=== PATIENT | female | born 1980 | race Caucasian/White ===

== ENCOUNTER 2022-11-09 08:58 | Emergency (ER) | payer OTHER, SELFPAY ==
[2022-11-09 09:03] VITALS: BP 121/74; PULSE 85; RESP 20; TEMP 36.8; O2SAT 97; BMI 24.4
--- NOTE | 2022-11-09 09:08 | XR_ITS ---
The [address] [address] Patient Name: JYOTHI SHARMA MRN: [id number] date: 1980 Sex: F Assigned Patient Location: ER Current Patient Location: ER Accession/Order Number: [id number] Exam Date: 11/09/2022 09:14 Report Date: 11/09/2022 09:44 At the request of: SHANIQUA VERMA Procedure: XR foot RT min 3V PROCEDURE: XR foot RT min 3V HISTORY: pain ; third and fourth metatarsal pain following injury COMPARISON: None. FINDINGS: BONES:No fracture, acute abnormality, or significant arthropathy. SOFT TISSUES:No visible soft tissue swelling. EFFUSION:None visible. OTHER: Negative. IMPRESSION: 1. No acute bone abnormality. Electronically authenticated by: ANDRES MATA Date: 11/09/2022 09:44
--- NOTE | 2022-11-09 09:12 | ED.LOWEXI1 ---
HPI - Extremity Injury (Lower) General Chief Complaint: Extremity Injury, Lower Stated Complaint: LOWER EXTREMITY LEFT FOOT Time Seen by Provider: 11/09/22 09:08 Source: patient Mode of arrival: walk-in Limitations: no limitations History of Present Illness HPI Narrative: 42-year-old female presents for pain in the dorsum of her right foot. Last night she twisted it doing jujitsu. No other injury was sustained. It's been swollen and she came in here to get checked today. The pain is moderate. No pain in the ankle. She did not hit it on anything. Related Data Home Medications Medication Instructions Recorded Confirmed lisinopril 10 mg tablet 10 mg PO DAILY 11/09/22 11/09/22 Allergies Allergy/AdvReac Type Severity Reaction Status Date / Time No Known Drug Allergies Allergy Verified 11/09/22 09:03 Review of Systems ROS Narrative A ten point review of systems is negative except as noted above. [facility] Medical History (Updated 11/09/22 @ 09:54 by Gaurav Cox MD) Social History Smoking status: Never smoker Exam Narrative Exam Narrative: Nurses note and vital signs reviewed and patient is not hypoxic. General: The patient appears well and in no apparent distress. Patient is resting comfortably on cart. Skin: Warm, dry, no pallor noted. There is no rash noted. Head: Normocephalic, atraumatic Eye: Normal conjunctiva, no drainage Ears, Nose, Mouth, and Throat: oral mucosa is moist. Nares patent. Cardiovascular: Regular Rate and Rhythm Respiratory: Patient is in no distress, no accessory muscle use Back: non-tender GI: Nontender Musculoskeletal: Right ankle nontender and nonswollen. She has swelling on the dorsum of her right foot with intact skin. Neurological: A&O, normal speech Psychiatric: Cooperative Constitutional Vital Signs - 24 hr 11/09/22 09:03 Temperature 98.2 F Pulse Rate [Monitor] 85 Respiratory Rate 20 Blood Pressure [Left Arm] 121/74 H Pulse Oximetry 97 Oxygen Delivery Method Room Air Course Vital Signs Vital signs: Vital Signs Temperature 98.2 F 11/09/22 09:03 Pulse Rate 85 11/09/22 09:03 Respiratory Rate 20 11/09/22 09:03 Blood Pressure 121/74 H 11/09/22 09:03 Pulse Oximetry 97 11/09/22 09:03 Oxygen Delivery Method Room Air 11/09/22 09:03 Temperature 98.2 F 11/09/22 09:03 Pulse Rate 85 11/09/22 09:03 Respiratory Rate 20 11/09/22 09:03 Blood Pressure 121/74 H 11/09/22 09:03 Pulse Oximetry 97 11/09/22 09:03 Oxygen Delivery Method Room Air 11/09/22 09:03 MDM - Extremity Injury (Lower) MDM Narrative Medical decision making narrative: X-ray per radiologist is negative. My clinical impressions that she has a sprained foot. She has her own crutches and she'll use ice and anti-inflammatory. Treatment diagnosis and follow-up were discussed with the patient. Differential Diagnosis Differential diagnosis: Likely other (Foot sprain, foot fracture) Discharge Plan Discharge Chief Complaint: Extremity Injury, Lower Clinical Impression: Foot sprain Patient Disposition: Home, Self-Care Time of Disposition Decision: 09:54 Condition: Good Mode of Transportation: Private Vehicle Prescriptions / Home Meds: No Action lisinopril 10 mg tablet 10 mg PO DAILY Stand Alone Forms: Portal Instructions Referrals: Yessenia Flores [Primary Care Provider] - 1 week
== END 2022-11-09 10:06 | disposition home or self-care (01) ==
PROVIDERS: Emergency Provider Emergency Medicine; PCP Family Medicine
DX: S93.601A Unspecified sprain of right foot, initial encounter (principal); X50.1XXA Overexertion from prolonged static or awkward postures, initial encounter; Y93.75 Activity, martial arts
CPT/HCPCS: 73630; 99283

== ENCOUNTER 2022-12-17 14:30 | Emergency (ER) | payer OTHER, SELFPAY ==
--- NOTE | 2022-12-17 14:45 | ED.GENADUL1 ---
Documented by User: DIMPLE Lai 12/17/22 15:00 HPI - General Adult General Chief complaint: Wound/Laceration Stated complaint: POSSIBLE STITCHES ON UPPER LIP R SIDE Time Seen by Provider: 12/17/22 14:35 History of Present Illness HPI narrative: patient is a 42-year-old female presents to the Emergency Room for evaluation of laceration to the right upper lip. Tetanus up-to-date, patient states she was doing jujitsu when her face struck her partners knee. She denies any dental injury. She denies any domestic violence. Patient states it was an accident during training. Patient reports minimal discomfort, but notes bleeding initially and that the area of skin on the lip opens wide with moving her mouth. Patient appears no distress. She denies any head injury or loss of consciousness. Onset (ago): hour(s) (2) Quality: Reports aching Treatments prior to arrival: Reports other (gauze, dry pressure) Related Data Home Medications Medication Instructions Recorded Confirmed lisinopril 10 mg tablet 10 mg PO DAILY 11/09/22 11/09/22 Allergies Allergy/AdvReac Type Severity Reaction Status Date / Time No Known Drug Allergies Allergy Verified 12/17/22 14:58 Review of Systems ROS Constitutional Denies: fever or chills Eyes Denies: change in vision or blurry vision Ears, nose, mouth, and throat Denies: neck pain or throat swelling Cardiovascular Denies: chest pain or palpitations Gastrointestinal Denies: nausea or vomiting Neurological Denies: headache or dizziness [facility] Medical History (Updated 12/17/22 @ 14:55 by DIMPLE Lai) Social History Smoking status: Never smoker Exam Narrative Exam Narrative: Nurses notes and vital signs reviewed and patient is not hypoxic. General:? The patient appears well and in no apparent distress.? Patient is resting comfortably on cart. Skin:? Warm, dry, no pallor noted.laceration 0.5 cm the inner lip right upper, does not involve the vermilion border. slightly extends into the intraoral mucosa Head:? Normocephalic, atraumatic Neck:? Supple, trachea mid-line, no tenderness, no lymphadenopathy Eye:? Pupils are equal, round and reactive to light, EOMI Ears, Nose, Mouth, and Throat:? normal external inspection, no dental tenderness on palpation, localized simple laceration to the lip but does not involve the external surface of skin or vermilion border. Cardiovascular:? Regular Rate and Rhythm Respiratory:? Patient is in no distress, no accessory muscle use, lungs are clear to auscultation, no wheezing, rales or rhonchi. Back:? non-tender, no CVA tenderness Musculoskeletal:? normal ROM, no tenderness, no swelling Neurological:? A&O x4 Psychiatric:? Cooperative Constitutional Vital Signs, click to edit/add: Last Vital Signs Temp 98 F 12/17/22 14:55 Pulse 71 12/17/22 14:55 Resp 18 12/17/22 14:55 BP 148/90 H 12/17/22 14:55 Pulse Ox 98 12/17/22 14:55 Course Course Hospital Course: Laceration repair:? Done under sterile conditions.? The use of Betadine? was used to prep and clean the area.?topical let applied.. The wound was irrigated copiously with normal saline.? The wound was explored there was no evidence of foreign material.? The laceration was approximated with 5-0 vicryl.? 2 simple interrupted sutures were placed.? Patient tolerated the procedure well.? The patient was neurovascularly intact post.? the patient had bacitracin applied to the laceration and a dry sterile dressing was place.? The patient will need to follow-up in the next 7 days for possible removal, recheck if not dissolving. Vital Signs Vital signs: Vital Signs Temperature 98 F 12/17/22 14:55 Pulse Rate 71 12/17/22 14:55 Respiratory Rate 18 12/17/22 14:55 Blood Pressure 148/90 H 12/17/22 14:55 Pulse Oximetry 98 12/17/22 14:55 Temperature 98 F 12/17/22 14:55 Pulse Rate 71 12/17/22 14:55 Respiratory Rate 18 12/17/22 14:55 Blood Pressure 148/90 H 12/17/22 14:55 Pulse Oximetry 98 12/17/22 14:55 Medical Decision Making [facility] Narrative Medical decision making narrative: tetanus up-to-date, patient presents with localized laceration to the lip, patient denies any neck or head injury. Recommend suture closure given the gaping of the laceration when patient opens her mouth. We discussed eating soft foods, rinsing with water after meals, and follow-up family doctor for reevaluation.Do not recommend oral antibiotics given wound, superficial, discussed rinsing. No current evidence of infection, discussed signs and symptoms to watch. We also discussed that sometimes dissolving sutures do not fully dissolved in the suture may need to be removed if it for sometime The patient is to followup with primary care physician in next 5-7 days or to return to the emergency department should any of the signs or symptoms worsen or new symptoms develop. Patient had questions answered. The patient agrees with the following Diagnosis and Treatment plan and the patient will be discharged home.? Discharge Plan Discharge Chief Complaint: Wound/Laceration Clinical Impression: Laceration of lip Patient Disposition: Home, Self-Care Time of Disposition Decision: 15:33 Condition: Good Prescriptions / Home Meds: No Action lisinopril 10 mg tablet 10 mg PO DAILY Instructions: Laceration (ED) Stand Alone Forms: Portal Instructions Referrals: Yessenia Flores [Primary Care Provider] - 1 week Documented by User: Sherry Engel MD 12/17/22 15:17 HPI - General Adult General Chief complaint: Wound/Laceration Stated complaint: POSSIBLE STITCHES ON UPPER LIP R SIDE Time Seen by Provider: 12/17/22 14:35 Related Data Home Medications Medication Instructions Recorded Confirmed lisinopril 10 mg tablet 10 mg PO DAILY 11/09/22 11/09/22 Allergies Allergy/AdvReac Type Severity Reaction Status Date / Time No Known Drug Allergies Allergy Verified 12/17/22 14:58 PFSH [facility] Medical History (Updated 12/17/22 @ 14:55 by DIMPLE Lai) Social History Smoking status: Never smoker Exam Constitutional Vital Signs, click to edit/add: Last Vital Signs Temp 98 F 12/17/22 14:55 Pulse 71 12/17/22 14:55 Resp 18 12/17/22 14:55 BP 148/90 H 12/17/22 14:55 Pulse Ox 98 12/17/22 14:55 Course Course Hospital Course: Laceration repair:? Done under sterile conditions.? The use of Betadine? was used to prep and clean the area.?topical let applied.. The wound was irrigated copiously with normal saline.? The wound was explored there was no evidence of foreign material.? The laceration was approximated with 5-0 vicryl.? 2 simple interrupted sutures were placed.? Patient tolerated the procedure well.? The patient was neurovascularly intact post.? the patient had bacitracin applied to the laceration and a dry sterile dressing was place.? The patient will need to follow-up in the next 7 days for possible removal, recheck if not dissolving. Vital Signs Vital signs: Vital Signs Temperature 98 F 12/17/22 14:55 Pulse Rate 71 12/17/22 14:55 Respiratory Rate 18 12/17/22 14:55 Blood Pressure 148/90 H 12/17/22 14:55 Pulse Oximetry 98 12/17/22 14:55 Temperature 98 F 12/17/22 14:55 Pulse Rate 71 12/17/22 14:55 Respiratory Rate 18 12/17/22 14:55 Blood Pressure 148/90 H 12/17/22 14:55 Pulse Oximetry 98 12/17/22 14:55 Medical Decision Making MDM Narrative Medical decision making narrative: tetanus up-to-date, patient presents with localized laceration to the lip, patient denies any neck or head injury. Recommend suture closure given the gaping of the laceration when patient opens her mouth. We discussed eating soft foods, rinsing with water after meals, and follow-up family doctor for reevaluation.Do not recommend oral antibiotics given wound, superficial, discussed rinsing. No current evidence of infection, discussed signs and symptoms to watch. We also discussed that sometimes dissolving sutures do not fully dissolved in the suture may need to be removed if it for sometime The patient is to followup with primary care physician in next 5-7 days or to return to the emergency department should any of the signs or symptoms worsen or new symptoms develop. Patient had questions answered. The patient agrees with the following Diagnosis and Treatment plan and the patient will be discharged home.? Attending physician attestation All procedures were done by mid-level provider under my supervision. I have reviewed the mid-level documentation, agree with the documentation, medical decision making and treatment plan as outlined by the mid-level provider. Discharge Plan Discharge Chief Complaint: Wound/Laceration Clinical Impression: Laceration of lip Patient Disposition: Home, Self-Care Time of Disposition Decision: 15:33 Condition: Good Prescriptions / Home Meds: No Action lisinopril 10 mg tablet 10 mg PO DAILY Instructions: Laceration (ED) Stand Alone Forms: Portal Instructions Referrals: Yessenia Flores [Primary Care Provider] - 1 week
[2022-12-17 14:55] VITALS: BP 148/90; PULSE 71; RESP 18; TEMP 36.6; O2SAT 98; BMI 20.2
== END 2022-12-17 15:32 | disposition home or self-care (01) ==
PROVIDERS: Emergency Provider Emergency Medicine; PCP Family Medicine
DX: S01.511A Laceration without foreign body of lip, initial encounter (principal); W51.XXXA Accidental striking against or bumped into by another person, initial encounter; Y93.75 Activity, martial arts; Z79.899 Other long term (current) drug therapy
CPT/HCPCS: 12011; 99282

== ENCOUNTER 2023-07-07 09:17 | Outpatient (OUT) | payer OTHER, SELFPAY ==
[2023-07-07 10:09] LABS: Alanine Aminotransferase 35 U/L (14-59); Albumin Level 3.6 g/dL (3.4-5.0); Alkaline Phosphatase 69 U/L (46-116); Anion Gap 12.5; Aspartate Amino Transferase 25 U/L (15-37); Bilirubin Total 0.3 mg/dL (0.2-1.0); Calcium 8.8 mg/dL (8.5-10.1); Carbon Dioxide 28.1 mmol/L (21.0-32.0); Chloride 103 mmol/L (98-107); Estimated GFR (African America >60 (>=60); Estimated GFR (Non-African Ame >60 (>=60); Globulin 3.5 g/dL; Glucose 94 mg/dL (74-106); Potassium 4.6 mmol/L (3.5-5.1); Sodium 139 mmol/L (136-145); Total Protein 7.1 g/dL (6.4-8.2)
== END 2023-07-07 09:18 | disposition home or self-care (01) ==
LOC: LAB 09:19
PROVIDERS: PCP Family Medicine; Visit Provider Family Medicine
DX: I10 Essential (primary) hypertension (principal)
CPT/HCPCS: 36415; 80053

== ENCOUNTER 2023-09-21 18:50 | Emergency (ER) | payer OTHER, SELFPAY ==
[2023-09-21 18:56] VITALS: BP 127/86; PULSE 77; TEMP 36.8; O2SAT 99; BMI 23.4
[2023-09-21 19:00] VITALS: PULSE 78
--- NOTE | 2023-09-21 19:02 | XR_ITS ---
The [address] [address] Patient Name: JYOTHI SHARMA MRN: [id number] date: 1980 Sex: F Assigned Patient Location: ER Current Patient Location: ER Accession/Order Number: [id number] Exam Date: 09/21/2023 19:12 Report Date: 09/21/2023 19:26 At the request of: MARIAN JOHNS Procedure: XR chest 2V EXAM: XR chest 2V HISTORY: pain intermittently for the past week. COMPARISON: 05/13/2017 TECHNIQUE: Upright PA and lateral chest x-ray FINDINGS: The heart is not enlarged and the vasculature is not distended. No acute infiltrate, effusion or pneumothorax is identified. The osseous structures are grossly intact. XR/XR chest 2V IMPRESSION: No acute infiltrate or evidence of cardiac decompensation. The overall appearance of the chest is essentially unchanged. Electronically authenticated by: SOFIYA LLOYD Date: 09/21/2023 19:26
--- NOTE | 2023-09-21 19:02 | ECG_ITS ---
The [facility] Test Date: 2023-09-21 Pat Name: JYOTHI SHARMA Department: Room: - Gender: Female [employer]: : 1980 Requested By: [id number] Order Number: [id number] Reading MD: ELISABETH DURAN Measurements Intervals [place] Rate: 78 P: 67 [place]: 166 QRS: 78 QRSD: 98 T: 61 QT: 412 QTc: 446 Interpretive Statements 1100 Sinus rhythm 9110 normal ECG Compared to ECG 05/13/2017 12:04:50 No significant changes Electronically Signed On 09-23-2023 10:47:14 EDT by ELISABETH DURAN
--- OUTSIDE RECORDS SUMMARY | 2023-09-21 19:06 | XMS_ITS | CCD ---
Author Organization [facility] Care Team Providers Care Financial Reporting Manager Name Role Phone Xavier Younger Attending Provider NO FAMILY, PHYSICIAN Primary Care Provider Unava ilPRADEEP Bryant Attending Unavailable BERLIN ALEX Attending Unavailable BERLIN ALEX Admitting Unavailable CAROLYNN, DR MOSQUEDA Primary Care Unavailable ANDREW HICKS Consulting Unavailable KATI QURESHI Consulting Unavailable BERLIN ALEX Consulting Unavailable DR JAYLIN PRADHAN Primary Care Unavailable SHANIQUA VERMA Attending Unavailable SHANIQUA VERMA Admitting Unavailable SHANIQUA VERMA Consulting Unavailable ANDREZ NAVARRO Consulting Unavailable TARIQ, DR PUGH Attending Unavailable TARIQ, DR PUGH Admitting Unavailable KANDIS GALAN Primary Care Unavailable Unavailable Unavailable Unavailable Problems Active Problems Problem Classification Problem Date Documented Da te Episodic/Chronic Other diseases of veins and lymphatics (4 sources) Disorder of vein, unspecified; Translations: [DISORDER OF VEIN UNSPECIFIED] Onset: 06-28-2022 Episodic Poisoning by nonmedicinal substances (1 source) Toxic effect of ingested mushrooms, undetermined, initial encounter; Translations: [Toxic effect of ingested mushrooms, undetermined, initial encounter] Onset: 04-22-2022 Episodic Residual codes; unclassified (1 source) Procedure and treatment not carried out due to patient leaving prior to being seen by health care provider; Translations: [PROC AND TX NOT CARRIED OUT PT LEAVE] Onset: 06-29-2022 Episodic Past or Other Problems Problem Classification Problem Date Documented Da te Episodic/Chronic E Codes: Natural/environment (2 sources) Overexertion from prolonged static or awkward postures, initial encounter; Translations: [Other and unspecified overexertion or strenuous movements or postures, initial encounter] Onset: 09-06-2021 Episodic E Codes: Unspecified (1 source) Activity, martial arts; Translations: [ACTIVITY MARTIAL ARTS] Onset: 10-04-2021 Episodic Fracture of upper limb (1 source) Displaced fracture of middle phalanx of left little finger, initial encounter for closed fracture; Translations: [DSPL FX MID PHAL LT LF INIT CLOS FX] Onset: 09-06-2021 Episodic Other aftercare (1 source) Other adjunct faculty for medical terminology (current) drug therapy; Translations: [OTH [facility] CURRENT DRUG THERAPY] Onset: 09-06-2021 Episodic Other connective tissue disease (3 sources) Pain in left finger(s); Translations: [PAIN IN LEFT FINGERS] Onset: 09-05-2021 Episodic Other non-traumatic joint disorders (3 sources) Pain in left ankle and joints of left foot; Translations: [PAIN IN LEFT ANKLE] Onset: 10-02-2021 Episodic Screening and history of mental health and substance abuse codes (1 source) Personal history of nicotine dependence; Translations: [PERSONAL HISTORY OF NICOTINE DEPEND] Onset: 09-06-2021 Episodic Sprains and strains (1 source) Sprain of unspecified ligament of left ankle, initial encounter; Translations: [SPRAIN UNS LIGAMENT LT ANKLE INIT] Onset: 10-04-2021 Episodic Results Test Name Value Interpretation Reference Range [facility] Basic Metabolic Profon 04-22 Anion gap [Moles/Vol] 12 mmol/L Normal - [place] Comment on above: Performed By: #### C DP, ALCB, BMP #### [facility] [address] [place] [address] Training Executive: Jm Mijares MD BUN/CRE Ratio 18 Normal - [facility] Comment on above: Performed By: #### C DP, ALCB, BMP #### [facility] [address] [place] [address] Training Executive: Jm Mijares MD Calcium [Mass/Vol] 9.3 mg/dL Normal 8.6-10.4 [place] Comment on above: Performed By: #### C DP, ALCB, BMP #### [facility] [address] [place] [address] Training Executive: Jm Mijares MD Chloride [Moles/Vol] 103 mmol/L Normal 98-107 [place] Comment on above: Performed By: #### C GEOVANNA ANTUNEZB, BMP #### [facility] [address] [facility] [place] [address] Training Executive: Jm Mijares MD CO2 [Moles/Vol] 24 mmol/L Normal 20-31 [place] Comment on above: Performed By: #### C HARMONY ALCB, BMP #### [facility] [address] [facility] [place] [address] Training Executive: Jm Mijares MD Creatinine [Mass/Vol] 0.84 mg/dL Normal 0.50-0.90 [place] Comment on above: Performed By: #### C GEOVANNA ANTUNEZB, BMP #### [facility] [facility] [place] [address] Training Executive: Jm Mijares MD GFR/1.73 sq M.predicted among non-blacks MDRD (S/P/Bld) [Vol rate/Area] mL/min/{1.73_m2} Normal >60 [place] Comment on above: Result Comment: Effective Feb 20, 2022 These results are not intended for use in patients <18 years of age. eGFR results are calculated without a race factor using the 2020 CKD-EPI equation. Careful clinical correlation is recommended, particularly when comparing to results calculated using previous equations. The CKD-EPI equation is less accurate in patients with extremes of muscle mass, extra-renal metabolism of creatine, excessive creatine ingestion, or following therapy that affects renal tubular secretion. Performed By: #### C DP ALCB, BMP #### [facility] [address] [facility] [place] [address] Training Executive: Jm Mijares MD Glucose [Mass/Vol] 127 mg/dL High 70-99 [place] Comment on above: Performed By: #### C DP ALCB, BMP #### [facility] [address] [facility] [place] [address] Training Executive: Jm Mijares MD Potassium [Moles/Vol] 3.9 mmol/L Normal 3.7-5.3 [place] Comment on above: Performed By: #### C DP, ALCB, BMP #### [facility] [place] [address] Training Executive: Jm Mijares MD Sodium [Moles/Vol] 139 mmol/L Normal 135-144 [place] Comment on above: Performed By: #### C DP, ALCB, BMP #### [facility] [facility] [place] [address] Training Executive: Jm Mijares MD Urea nitrogen [Mass/Vol] 15 mg/dL Normal 6-20 [place] Comment on above: Performed By: #### C DP ALCB, BMP #### [facility] [facility] [place] [address] Training Executive: Jm Mijares MD CBC with Diffon 04-22-2022 Abs. Basophil 0.03 k/uL Normal 0.00-0.20 [facility] Comment on above: Performed By: #### C DP ALCB, BMP #### [facility] [facility] [place] [address] Training Executive: Jm Mijares MD Abs. Eosinophil <0.03 Normal 0.00-0.44 [place] Comment on above: Performed By: #### C DP ALCB, BMP #### [facility] [facility] [place] [address] Training Executive: Jm Mijares MD Abs.Imm.Granulocyte 0.04 k/uL Normal 0.00-0.30 [place] Comment on above: Performed By: #### C DP, ALCB, BMP #### [facility] [place] [address] Training Executive: Jm Mijares MD Abs.Neutrophil (Seg) 9.71 k/uL High 1.50-8.10 [place] Comment on above: Performed By: #### C DP, ALCB, BMP #### [facility] [address] [place] [address]. [place] [address] Training Executive: Jm Mijares MD Basophils/100 WBC (Bld) 0 % Normal 0-2 [place] Comment on above: Performed By: #### C DP, ALCB, BMP #### [facility] [address] [place] [address]. [place] [address] Training Executive: Jm Mijares MD Eosinophils/100 WBC (Bld) 0 % Low 1-4 [place] Comment on above: Performed By: #### C DP, ALCB, BMP #### [facility] [address] [place] [address]. [place] [address] Training Executive: Jm Mijares MD Erythrocyte distribution width (RBC) [Ratio] 13.2 % Normal 11.8-14.4 [place] Comment on above: Performed By: #### C DP, ALCB, BMP #### [facility] [address] [place] [address]. [place] [address] Training Executive: Jm Mijares MD Hematocrit (Bld) [Volume fraction] 37.9 % Normal 36.3-47.1 [place] Comment on above: Performed By: #### C DP, ALCB, BMP #### [facility] [address] [place] [address]. [place] [address] Training Executive: Jm Mijares MD Hemoglobin (Bld) [Mass/Vol] 12.7 g/dL Normal 11.9-15.1 [place] Comment on above: Performed By: #### C DP ALCB, BMP #### [facility] [address] [place] [address]. [place] [address] Training Executive: Jm Mijares MD Immature granulocytes/100 WBC (Bld) 0 % Normal 0 [place] Comment on above: Performed By: #### C DP, ALCB, BMP #### [facility] [address] [place] [address] Training Executive: Jm Mijares MD Lymphocytes (Bld) [#/Vol] 1.21 10*3/uL Normal 1.10-3.70 [place] Comment on above: Performed By: #### C DP ALCB, BMP #### [facility] [address] [place] [address]. [place] [address] Training Executive: Jm Mijares MD Lymphocytes/100 WBC (Bld) 11 % Low 24-43 [place] Comment on above: Performed By: #### C DP ALCB, BMP #### [facility] [address] [place] [address] Training Executive: Jm Mijares MD MCH (RBC) [Entitic mass] 30.0 pg Normal 25.2-33.5 [place] Comment on above: Performed By: #### C DP ALCB, BMP #### [facility] [address] [place] [address] Training Executive: Jm Mijares MD MCHC (RBC) [Mass/Vol] 33.5 g/dL Normal 28.4-34.8 [place] Comment on above: Performed By: #### C DP ALCB, BMP #### [facility] [address] [place] [address] [place] [address] Training Executive: Jm Mijares MD MCV (RBC) [Entitic vol] 89.4 fL Normal 82.6-102.9 [place] Comment on above: Performed By: #### C DP, ALCB, BMP #### [facility] [address] [place] [address]. [place] [address] Training Executive: Jm Mijares MD Monocytes (Bld) [#/Vol] 0.41 10*3/uL Normal 0.10-1.20 [place] Comment on above: Performed By: #### C DP, ALCB, BMP #### [facility] [address] [place] [address] Training Executive: Jm Mijares MD Monocytes/100 WBC (Bld) 4 % Normal 3-12 [place] Comment on above: Performed By: #### C DP, ALCB, BMP #### [facility] [address] [place] [address]. [place] [address] Training Executive: Jm Mijares MD Neutrophil (Seg) 85 % High 36-65 [facility] Comment on above: Performed By: #### C DP, ALCB, BMP #### [facility] [address] [place] [address]. [place] [address] Training Executive: Jm Mijares MD NRBC Automated 0.0 per 100 WBC Normal 0.0 [place] Comment on above: Performed By: #### C DP, ALCB, BMP #### [facility] [address] [place] [address]. [place] [address] Training Executive: Jm Mijares MD Platelet mean volume (Bld) [Entitic vol] 10.3 fL Normal 8.1-13.5 [place] Comment on above: Performed By: #### C DP, ALCB, BMP #### [facility] [address] [place] [address] Training Executive: Jm Mijares MD Platelets (Bld) [#/Vol] 266 10*3/uL Normal 138-453 [place] Comment on above: Performed By: #### C DP, ALCB, BMP #### [facility] [address] [place] [address] Training Executive: Jm Mijares MD RBC (Bld) [#/Vol] 4.24 10*6/uL Normal 3.95-5.11 [place] Comment on above: Performed By: #### C DP, ALCB, BMP #### [facility] [facility] [place] [address] Training Executive: Jm Mijares MD WBC (Bld) [#/Vol] 11.4 10*3/uL High 3.5-11.3 [place] Comment on above: Performed By: #### C DP, ALCB, BMP #### [facility] [facility] [place] [address] Training Executive: Jm Mijares MD Drug Scr, Abuse, Uron 2021 Amphetamine(s),Ur Negative Normal NEG [facility] Comment on above: Result Comment: (Positive cutoff 1000 ng/mL) Performed By: #### U HCG, UMICAO, UAX, CLIFF #### [facility] [address] [facility] [place] [address] Training Executive: Jm Mijares MD Barbiturate(s),Ur Negative Normal NEG [facility] Comment on above: Result Comment: (Positive cutoff 200 ng/mL) Performed By: #### U HCG, UMICAO, UAX, CLIFF #### [facility] [place] [address] Training Executive: Jm Mijares MD Benzodiazepine(s) Negative Normal NEG [facility] Comment on above: Result Comment: (Positive cutoff 200 ng/mL) Performed By: #### U HCG, UMICAO, UAX, CLIFF #### [facility] [address] [facility] [place] [address] Training Executive: Jm Mijares MD Cannabinoid(s),Ur Positive Abnormal NEG [facility] Comment on above: Result Comment: (Positive cutoff 50 ng/mL) Performed By: #### U HCG, UMICAO, UAX, CLIFF #### [facility] [facility] [place] [address] Training Executive: Jm Mijares MD Cocaine Metabolite Negative Normal NEG [place] Comment on above: Result Comment: (Positive cutoff 300 ng/mL) Performed By: #### U HCG, UMICAO, UAX, CLIFF #### [facility] [address] [facility] [place] [address] Training Executive: Jm Mijares MD Fentanyl, Urine Negative Normal NEG [place] Comment on above: Result Comment: (Positive cutoff 5 ng/ml) Performed By: #### U HCG, UMICAO, UAX, CLIFF #### [facility] [address] [place] [address]. [place] [address] Training Executive: Jm Mijares MD Interpretive Info Assay provides medical screening only. The absence of expected drug(s) and/or Normal [place] Comment on above: Result Comment: meta bolite(s) may indicate diluted or adulterated urine, limitations of testing or timing of collection. Testing for legal purposes should be confirmed by another method. To request confirmation of test result, please call the lab within 7 days of sample submission. Performed By: #### U HCG, UMICAO, UAX, CLIFF #### [facility] [address] [facility] [place] [address] Training Executive: Jm Mijares MD Methadone Ql (U) Negative Normal NEG [facility] Comment on above: Result Comment: (Positive cutoff 300 ng/mL) Performed By: #### U HCG, UMICAO, UAX, CLIFF #### [facility] [address] [place] [address]. [place] [address] Training Executive: Jm Mijares MD Opiate(s), Ur Negative Normal NEG [facility] Comment on above: Result Comment: (Positive cutoff 300 ng/mL) Performed By: #### U HCG, UMICAO, UAX, CLIFF #### [facility] [address] [place] [address] Training Executive: Jm Mijares MD Oxycodone, Urine Negative Normal NEG [facility] Comment on above: Result Comment: (Positive cutoff 100 ng/mL) Performed By: #### U HCG, UMICAO, UAX, CLIFF #### [facility] [address] [place] [address] Training Executive: Jm Mijares MD Phencyclidine, Ur Negative Normal NEG [facility] Comment on above: Result Comment: (Positive cutoff 25 ng/mL) Performed By: #### U HCG, UMICAO, UAX, CLIFF #### [facility] [address] [place] [address] Training Executive: Jm Mijares MD Ethanol Alcoholon 04-22-2022 Ethanol [Mass/Vol] mg/dL Normal <10 [place] Comment on above: Performed By: #### C DP, ALCB, BMP #### [facility] [address] [place] [address] Training Executive: Jm Mijares MD Ethanol percent <0.010 Normal <0.010 [place] Comment on above: Performed By: #### C DP, ALCB, BMP #### [facility] [address] [place] [address]. [place] [address] Training Executive: Jm Mijares MD HCG, ,Urineon 04-22 Beta HCG ( test) Ql (U) Negative Normal NEG [place] Comment on above: Result Comment: Spec imens with hCG levels near the threshold of the test (25 mIU/mL) may give a negative or indeterminate result. In such cases, another test should be performed with a new specimen in 48-72 hours. If early is suspected clinically in this setting, correlation with quantitative serum b-hCG level is suggested. Performed By: #### U HCG, UMICAO, UAX, CLIFF #### [facility] [address] [place] [address]. [place] [address] Training Executive: Jm Mijares MD UA w/Reflex Cultureon 2021 Bilirubin, SemiQt,Ur Negative Normal NEG [place] Comment on above: Performed By: #### U HCG, UMICAO, UAX, CLIFF #### [facility] [address] [place] [address]. [place] [address] Training Executive: Jm Mijares MD Blood, Urine TRACE Abnormal NEG [facility] Comment on above: Performed By: #### U HCG, UMICAO, UAX, CLIFF #### [facility] [address] [place] [address]. [place] [address] Training Executive: Jm Mijares MD Clarity (U) Clear Normal CLEAR [facility] Comment on above: Performed By: #### U HCG, UMICAO, UAX, CLIFF #### [facility] [address] [place] [address]. [place] [address] Training Executive: Jm Mijares MD Color (U) Yellow Normal YEL [place] Comment on above: Performed By: #### U HCG, UMICAO, UAX, CLIFF #### [facility] [address] [place] [address]. [place] [address] Training Executive: Jm Mijares MD Glucose Ql (U) Negative Normal NEG [place] Comment on above: Performed By: #### U HCG, UMICAO, UAX, CLIFF #### [facility] [address] [place] [address]. [place] [address] Training Executive: Jm Mijares MD Ketones Ql (U) Negative Normal NEG [place] Comment on above: Performed By: #### U HCG, UMICAO, UAX, CLIFF #### [facility] [address] [place] [address]. [place] [address] Training Executive: Jm Mijares MD Leukocyte esterase Test strip Ql (U) Negative Normal NEG [place] Comment on above: Performed By: #### U HCG, UMICAO, UAX, CLIFF #### [facility] [address] [place] [address]. [place] [address] Training Executive: Jm Mijares MD Nitrite,Ur Negative Normal NEG [place] Comment on above: Performed By: #### U HCG, UMICAO, UAX, CLIFF #### [facility] [address] [place] [address]. [place] [address] Training Executive: Jm Mijares MD PH,Ur 6.0 Normal 5.0-8.0 [place] Comment on above: Performed By: #### U HCG, UMICAO, UAX, CLIFF #### [facility] [address] [place] [address]. [place] [address] Training Executive: Jm Mijares MD Protein Ql (U) Negative Normal NEG [place] Comment on above: Performed By: #### U HCG, UMICAO, UAX, CLIFF #### [facility] [address] [facility] [place] [address] Training Executive: Jm Mijares MD Spec. Rugby,Ur 1.020 Normal 1.005-1.030 [facility] Comment on above: Performed By: #### U HCG, UMICAO, UAX, CLIFF #### [facility] [address] [place] [address]. [place] [address] Training Executive: Jm Mijares MD Urobilinogen,Ur Normal Normal NORM [place] Comment on above: Performed By: #### U HCG, UMICAO, UAX, CLIFF #### [facility] [address] [place] [address] Training Executive: Jm Mijares MD Urinalysis,Microon 2 Bacteria RARE Abnormal NONE [place] Comment on above: Performed By: #### U HCG, UMICAO, UAX, CLIFF #### [facility] [address] [place] [address] Training Executive: Jm Mijares MD Epithelial cells LM Ql (Urine sed) 2 TO 5 Normal 0-5 [place] Comment on above: Performed By: #### U HCG, UMICAO, UAX, CLIFF #### [facility] [address] [place] [address] Training Executive: Jm Mijares MD Urine RBC's 10 TO 20 Normal 0-2 [facility] Comment on above: Performed By: #### U HCG, UMICAO, UAX, CLIFF #### [facility] [address] [place] [address]. [place] [address] Training Executive: Jm Mijares MD Urine WBC's 0 TO 2 Normal 0-5 [facility] Comment on above: Performed By: #### U KEVON, YOSELIN TEJADA, CLIFF #### [facility] [address] [place] [address] Training Executive: Jm Mijares MD XR ANKLE LT MIN 3 Von 2021 XR ANKLE LT MIN 3 V IMAGES REVIEWED: XR ANKLE LT MIN 3 V COMPARISON: None available. CLINICAL INDICATION: Pain FINDINGS/IMPRESSION: 1. No radiographic evidence of acute osseous abnormality of the left ankle. 2. Moderate lateral ankle soft tissue swelling. Electronically authenticated by: KATI QURESHI Date: 2021-10-02 20:[address] [facility] XR HAND LT MIN 3Von 09-06-19 XR HAND LT MIN 3V EXAM: XR HAND LT MIN 3V HISTORY: Left hand pain. Pain in left fifth finger for one month after injury. The marker placed at site of pain. COMPARISON: None. TECHNIQUE: 3 views left hand. FINDINGS: There is a punctate metallic radiopaque foreign body within the radial soft tissues at the base of the left index finger. There is mild soft tissue swelling of the left fifth finger. There appears to be a subacute volar plate fracture involving the base of the middle phalanx of the left fifth finger. IMPRESSION: 1. Soft tissue swelling at the left fifth finger. There appears to be an associated subacute volar plate fracture involving the base of the middle phalanx of the left fifth finger. 2. Punctate metallic radiopaque foreign body within the radial soft tissues at the base of the left index finger. Electronically authenticated by: ANDREZ NAVARRO Date: 2021-09-05 08:[address] [facility] [place] 06-22-2020 L Specimen: [id number] Received: 06/22/20 Status: RAJAN Su Num: [id number] Spec Type: Surgical Subm Dr: Xavier Younger MD Tissues: A Skin-Other than Cyst, tag, debridement or plastic repair (L FOREHEAD) Procedures: HE Stain, Gross/Micro L4 Patient Age/Sex Location Account Attending Physician Jenni Sharma 39/F DANILO [id number] Xavier Younger MD SPEC NUM: [id number] RECD: 06/22/20 STATUS: RAJAN SU NUM: [id number] YOSEF: 06/22/20- SUBM DR: Xavier Younger MD ENTERED: 06/22/[address]: NICOLE TYPE: Surgical DEPT: S ORDERED: HE Stain, Gross/Micro L4 ORDERED: HE Stain, Gross/Micro L4 Pathological Diagnosis Soft tissue, left forehead, biopsy: - Mature adipose tissue, compatible with lipoma Clinical Information Mass increasing in size primary biopsy Gross Description Received in formalin labeled with the patient's name, number and left forehead are 2 unoriented yellow lobulated adipose tissue fragments that measure 0.3 cm and 0.7 cm. Entirely submitted in one cassette labeled A1. (SM/JS) Microscopic Description One glass slide with H E stained material has been examined. The microscopic findings support the above pathologic diagnosis. [id number] Specimen: [id number] Received: 06/22/20 Status: RAJAN Su Num: [id number] Spec Type: Surgical Subm Dr: Xavier Younger MD Tissues: A Skin-Other than Cyst, tag, debridement or plastic repair (L FOREHEAD) Procedures: DEVYN Malloy, Gross/Micro L4 Patient: Jenni Sharma [id number] (Continued) Signed (signature on file) Dallas Mckenzie MD 06/23/20 1731 Normal [facility] Encounters Encounter Date Encounter Type Care Provider Facility Start: 06-28-2022 End: 06-28-[address] LEXY POTTER Facility:[facility] Start: 04-22-2022 End: 04-22-2022 Emergency department patient visit [facility] [place] Start: 10-02-2021 End: 10-02-2021 ambulatory BERLIN ALEX Facility:[facility] Start: 09-05-2021 End: 09-05-[address] DOCTOR PRADHAN Facility:[facility] Start: 06-22-2020 End: 06-22-2020 Departed Referred [facility] [place] Payers Date Payer Category Payer Unknown [id number] 1980 Unknown [id number] [id number] [id number] 1980 Unknown [id number] [id number] [id number] 1980 Unknown [id number] [id number] [id number] 1959 Unknown [id number] Self-pay Self Pay [id number] Social History Date Type Detail [facility] Start: 1980 Sex Assigned At Female F [facility] Goals Date Patient Goal Desired Activity /State Advance Directives No Advanced Directives Records Found Advance Directive Response Recorded Date/ Time Advance Directives No June 22, 2020 2:02pm Chief Complaint and Reason for Visit Chief Complaint mass increasing in s ize D49.2 Assessments No Assessments Information Available Summary Purpose Family History No Family History Records FoundNo Family History Records FoundNo Family History Records Found Additional Source Comments INFORMATION SOURCE (unrecogn ized section and content) DATE CREATED AUTHOR 06/28/2020 [facility] DATE CREATED AUTHOR AUTHOR'S MAC ATION 04/22/[address] [facility] DATE CREATED AUTHOR AUTHOR'S ORGANIZ ATION 06/29/2022 [facility] FOR RECORDS PERTAINING TO PATIENTS WHO ARE OR HAVE BEEN ENROLLED IN A CHEMICAL DEPENDENCY/SUBSTANCEABUSE PROGRAM, SOME INFORMATION MAY BE OMITTED. This clinical summary was aggregated from multiple sources. Caution should be exercised in using it in the provision of clinical care. This summary normalizes information from multiple sources, and as a consequence, information in this document may materially change the coding, format and clinical context of patient data. In addition, data may be omitted in some cases. CLINICAL DECISIONS SHOULD BE BASED ON THE PRIMARY CLINICAL RECORDS. [employer] provides no warranty or guarantee of the accuracy or completeness of information in this document.
--- NOTE | 2023-09-21 19:08 | PC.NURSE ---
Mid sternal chest pain. states worse when she smoked weed. Not reproducible with palpation. 5/10 aches
[2023-09-21] MEDS: KETOROLAC TROMETHAMINE 30 MG/ML VIAL IVP (19:17)
[2023-09-21] MEDS: ONDANSETRON PF 4 MG/2 ML VIAL IV (19:17)
[2023-09-21 19:20] LABS: Basophils Percent Auto 0.5 % (0.2-2.0); Eosinophils Absolute Auto 0.1 10^3/uL (0.0-0.7); Eosinophils Percent Auto 1.2 % (0.9-7.0); Hematocrit 35.1 % (36.0-48.0); Hemoglobin 11.6 g/dL (12.0-16.0); Immature Granulocytes Abs Auto 0.01 10^3/uL (0.00-0.03); Immature Granulocytes Pct Auto 0.1 % (0.0-0.5); Lymphocytes Absolute Auto 2.7 10^3/uL (1.2-3.8); Mean Corpuscular Hemoglobin 29.5 pg (26.7-34.0); Mean Corpuscular Volume 89.3 fL (81.0-99.0); Monocytes Absolute Auto 0.5 10^3/uL (0.3-0.8); Monocytes Percent Auto 6.7 % (1.7-12.0); Neutrophils Absolute Auto 4.5 10^3/uL (1.4-6.5); Neutrophils Percent Auto 57.5 % (43.0-75.0); Platelet Count 274 10^3/uL (150-450); Red Blood Count 3.93 10^6/uL (4.20-5.40); Red Cell Distribution Width 12.8 % (11.0-15.0); White Blood Count 7.8 10^3/uL (4.0-11.0)
[2023-09-21 19:34] LABS: Alanine Aminotransferase 26 U/L (14-59); Albumin Globulin Ratio 1.2; Albumin Level 3.9 g/dL (3.4-5.0); Alkaline Phosphatase 79 U/L (46-116); Aspartate Amino Transferase 18 U/L (15-37); BUN Creatinine Ratio 26.4; Bilirubin Total 0.3 mg/dL (0.2-1.0); Calcium 8.9 mg/dL (8.5-10.1); Carbon Dioxide 26.2 mmol/L (21.0-32.0); Chloride 104 mmol/L (98-107); Estimated GFR (African America >60 (>=60); Estimated GFR (Non-African Ame >60 (>=60); Globulin 3.2 g/dL; Glucose 86 mg/dL (74-106); INR 1.05; Partial Thromboplastin Time 29.8 sec (22.3-36.2); Potassium 3.2 mmol/L (3.5-5.1); Prothrombin Time 11.1 sec (9.0-11.6); Sodium 135 mmol/L (136-145); Total Protein 7.1 g/dL (6.4-8.2)
[2023-09-21 19:41] LABS: Troponin I High Sensitivity 4.5 pg/mL (4.0-51.3)
--- NOTE | 2023-09-21 19:54 | ED_ITS ---
HPI - Chest Pain General Chief Complaint: Chest Pain Stated Complaint: cp Time Seen by Provider: 09/21/23 18:58 Source: patient Mode of arrival: walk-in Limitations: no limitations History of Present Illness HPI narrative: 43-year-old female presenting here with a chief complaint of chest wall pain and tenderness for the past week. She states she was in a [employer] competition last week dropped a bunch of weight overnight in order to participate in his felt nauseous and not well since. Denies any known injury or trauma. She has no pain to palpation of the chest at this time. She states she was smoking [employer] earlier today developed increased chest wall pain and nausea. Vital signs are stable. She has a past medical history of hypertension. It is controlled with medication. Patient denies any other past medical history Related Data Home Medications ?Medication ?Instructions ?Recorded ?Confirmed lisinopril 10 mg tablet 10 mg PO DAILY 11/09/22 09/21/23 Allergies Allergy/AdvReac Type Severity Reaction Status Date / Time No Known Drug Allergies Allergy Verified 09/21/23 18:55 Review of Systems ROS Narrative All Systems are negative except as noted/marked.All systems reviewed and otherwise negative [facility] Medical History (Updated 09/21/23 @ 19:58 by Lisbeth Ling) History of hypertension ?Z86.79 - Personal history of other diseases of the circulatory system (ICD- 10) Social History Smoking status: Never smoker Exam Narrative Exam Narrative: Nurses note and vital signs reviewed and patient is not hypoxic. General: The patient appears well and in no apparent distress. Patient is resting comfortably on cart. Skin: Warm, dry, no pallor noted. There is no rash noted. Head: Normocephalic, atraumatic Eye: Normal conjunctiva, no drainage, EOMI. PERRL Ears, Nose, Mouth, and Throat: oral mucosa is moist. Nares patent. Mouth without vesicles. Ear canals patent. Tm's without Erythema Cardiovascular: Regular Rate and Rhythm Respiratory: Patient is in no distress, no accessory muscle use, lungs are clear to auscultation, no wheezing, rales or rhonchi Back: non-tender, no CVA tenderness bilaterally to percussion. GI: Normal bowel sounds, no tenderness to palpation, no masses appreciated. No rebound, guarding, or rigidity noted. Musculoskeletal: The patient has no evidence of calf tenderness, no pitting edema, symmetrical pulses noted bilaterally Neurological: A&O x4, normal speech Psychiatric: Cooperative Constitutional Vital Signs, click to edit/add: Last Vital Signs Temp 98.3 F 09/21/23 18:56 Pulse 77 09/21/23 18:56 Resp 16 09/21/23 18:56 BP 127/86 09/21/23 18:56 Pulse Ox 99 09/21/23 18:56 Course Vital Signs Vital signs: Vital Signs Temperature 98.3 F 09/21/23 18:56 Pulse Rate 77 09/21/23 18:56 Respiratory Rate 16 09/21/23 18:56 Blood Pressure 127/86 09/21/23 18:56 Pulse Oximetry 99 09/21/23 18:56 Temperature 98.3 F 09/21/23 18:56 Pulse Rate 77 09/21/23 18:56 Respiratory Rate 16 09/21/23 18:56 Blood Pressure 127/86 09/21/23 18:56 Pulse Oximetry 99 09/21/23 18:56 MDM - Chest Pain MDM Narrative Medical decision making narrative: Female presents with a chief complaint of chest pain. She states she has had increased pain and nausea for the last week. She was in a distant to competition and states has had increased nausea since losing a much weight for that competition last week. Pain is not producible chest wall on examination. She has no known injury or trauma or ecchymosis. Room, patient was given IV placement EKG and lab work were performed. CBC, BMP and troponin are negative. Patient's heart score is 0. Patient's pain was relieved as well as her nausea with Zofran and Toradol. Patient is comfortable going home. Patient also states she has a history of anxiety. She had been smoking marijuana prior to coming in and did cause her to have increased nausea. She denies nauseous at this time and states her pain has improved. Patient is comfortable going home.Follow-up primary care physician Differential Diagnosis Differential diagnosis: Likely atypical chest pain, costochondritis and chest pain Medical Records Data Attestation: I reviewed the patient's medical records. Lab Data Attestation: I reviewed the patient's lab results. Labs: Lab Results 09/21/23 Range/Units 19:05 WBC 7.8 (4.0-11.0) 10^3/uL RBC 3.93 L (4.20-5.40) 10^6/uL Hgb 11.6 L (12.0-16.0) g/dL Hct 35.1 L (36.0-48.0) % MCV 89.3 (81.0-99.0) fL MCH 29.5 (26.7-34.0) pg MCHC 33.0 (29.9-35.2) g/dL RDW 12.8 (11.0-15.0) % Plt Count 274 (150-450) 10^3/uL MPV 10.0 (9.5-13.5) fL Neut % (Auto) 57.5 (43.0-75.0) % Lymph % (Auto) 34.0 (20.5-60.0) % [place] % (Auto) 6.7 (1.7-12.0) % Eos % (Auto) 1.2 (0.9-7.0) % Baso % (Auto) 0.5 (0.2-2.0) % Neut # (Auto) 4.5 (1.4-6.5) 10^3/uL Lymph # (Auto) 2.7 (1.2-3.8) 10^3/uL [place] # (Auto) 0.5 (0.3-0.8) 10^3/uL Eos # (Auto) 0.1 (0.0-0.7) 10^3/uL Baso # (Auto) 0.0 (0.0-0.1) 10^3/uL Abs Immat Gran (auto) 0.01 (0.00-0.03) 10^3/uL Imm/Tot Granulo (auto) 0.1 (0.0-0.5) % PT 11.1 (9.0-11.6) sec INR 1.05 APTT 29.8 (22.3-36.2) sec Sodium 135 L (136-145) mmol/L Potassium 3.2 L (3.5-5.1) mmol/L Chloride 104 (98-107) mmol/L Carbon Dioxide 26.2 (21.0-32.0) mmol/L Anion Gap 8.0 BUN 19.0 H (7.0-18.0) mg/dL Creatinine 0.72 (0.55-1.02) mg/dL Est GFR ( Amer) >60 (>=60) Est GFR (Non-Af Amer) >60 (>=60) BUN/Creatinine Ratio 26.4 Glucose 86 (74-106) mg/dL Calcium 8.9 (8.5-10.1) mg/dL Total Bilirubin 0.3 (0.2-1.0) mg/dL AST 18 (15-37) U/L ALT 26 (14-59) U/L Alkaline Phosphatase 79 (46-116) U/L Troponin I High Sens 4.5 (4.0-51.3) pg/mL NT-Pro-B Natriuret Pep 180.0 (<=450.0) pg/mL Total Protein 7.1 (6.4-8.2) g/dL Albumin 3.9 (3.4-5.0) g/dL Globulin 3.2 g/dL Albumin/Globulin Ratio 1.2 Imaging Data Chest x-ray: Attestation: I have reviewed the pertinent imaging results. Radiologist's impression: ITS Impressions Chest X-Ray 09/21/23 19:02 IMPRESSION: No acute infiltrate or evidence of cardiac decompensation. The overall appearance of the chest is essentially unchanged. Electronically authenticated by: SOFIYA LLOYD Date: 09/21/2023 19:26 ECG Data Attestation: ?I have reviewed the pertinent ECG results. Interpretation: 09/21/23 1900 Normal sinus rhythm with a rate of 78 bpm, TX interval 166 ms QRS duration 98 ms, normal sinus rhythm, no STEMI Heart Score History: Slightly/Non-Suspicious ECG: Normal Age: <45 years Risk Factors: No Risk Factors Troponin: <Normal Limit Total Heart Score Recommendations & Risks:: 0 Discharge Plan Discharge Stand Alone Forms: Portal Instructions Chief Complaint: Chest Pain Clinical Impression: Chest pain Patient Disposition: Home, Self-Care Time of Disposition Decision: 19:58 Condition: Good Prescriptions / Home Meds: No Action lisinopril 10 mg tablet 10 mg PO DAILY Print Language: Bol[place]ian Instructions: Noncardiac Chest Pain (ED), Chest Wall Pain (ED) Referrals: Yessenia Flores [Primary Care Provider] - 1 week
[2023-09-21 20:20] VITALS: BP 121/68; PULSE 76; O2SAT 97
== END 2023-09-21 20:23 | disposition home or self-care (01) ==
PROVIDERS: Physician Assistant; Emergency Provider Emergency Medicine; PCP Family Medicine
DX: R07.9 Chest pain, unspecified (principal); F12.90 Cannabis use, unspecified, uncomplicated; I10 Essential (primary) hypertension; Z79.899 Other long term (current) drug therapy
CPT/HCPCS: 36415; 71046; 80053; 83880; 84484; 85025; 85610; 85730; 93005; 96374; 96375; 99285

== ENCOUNTER 2023-10-09 15:17 | Outpatient (OUT) | payer OTHER, SELFPAY ==
--- OUTSIDE RECORDS SUMMARY | 2023-10-09 15:32 | XMS_ITS | CCD ---
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] Onset: 09-06-2021 Episodic Other [...] Results Test Name Value Interpretation Reference Range [facility] Basic Metabolic Profon 04-22 Anion gap [Moles/Vol] 12 mmol/L Normal - [facility] Comment on above: Performed By: #### C DP, ALCB, BMP #### [facility] [address] [place] [address] Presales Consultant: Jm Mijares MD BUN/CRE Ratio 18 Normal - [facility] Comment on above: Performed By: #### C DP, ALCB, BMP #### [facility] [address] [place] [address] Presales Consultant: Jm Mijares MD Calcium [Mass/Vol] 9.3 mg/dL Normal 8.6-10.4 [facility] Comment on above: Performed By: #### C DP, ALCB, BMP #### [facility] [address] [place] [address] Presales Consultant: Jm Mijares MD Chloride [Moles/Vol] 103 mmol/L Normal 98-107 [facility] Comment on above: Performed By: #### C DP ALCB, BMP #### [facility] [address] [facility] [place] [address] Presales Consultant: Jm Mijares MD CO2 [Moles/Vol] 24 mmol/L Normal 20-31 [facility] Comment on above: Performed By: #### C DP ALCB, BMP #### [facility] [address] [facility] [place] [address] Presales Consultant: Jm Mijares MD Creatinine [Mass/Vol] 0.84 mg/dL Normal 0.50-0.90 [facility] Comment on above: Performed By: #### C HARMONY ALCB, BMP #### [facility] [address] [facility] [place] [address] Presales Consultant: Jm Mijares MD GFR/1.73 sq M.predicted among non-blacks MDRD (S/P/Bld) [Vol rate/Area] mL/min/{1.73_m2} Normal >60 [facility] Comment on above: Result Comment: Effective Feb [...] By: #### C DP ALCB, BMP #### [facility] [address] [facility] [place] [address] Presales Consultant: Jm Mijares MD Glucose [Mass/Vol] 127 mg/dL High 70-99 [facility] Comment on above: Performed By: #### C DP, ALCB, BMP #### [facility] [place] [address] Presales Consultant: Jm Mijares MD Potassium [Moles/Vol] 3.9 mmol/L Normal 3.7-5.3 [facility] Comment on above: Performed By: #### C DP, ALCB, BMP #### [facility] [address] [place] [address] Presales Consultant: Jm Mijares MD Sodium [Moles/Vol] 139 mmol/L Normal 135-144 [facility] Comment on above: Performed By: #### C DP, ALCB, BMP #### [facility] [address] [place] [address] Presales Consultant: Jm Mijares MD Urea nitrogen [Mass/Vol] 15 mg/dL Normal 6-20 [facility] Comment on above: Performed By: #### C DP, ALCB, BMP #### [facility] [address] [place] [address] Presales Consultant: Jm Mijares MD CBC with Diffon 04-22-2022 Abs. Basophil 0.03 k/uL Normal 0.00-0.20 [facility] Comment on above: Performed By: #### C DP, ALCB, BMP #### [facility] [address] [place] [address] Presales Consultant: Jm Mijares MD Abs. Eosinophil <0.03 Normal 0.00-0.44 [facility] Comment on above: Performed By: #### C DP, ALCB, BMP #### [facility] [address] [place] [address] Presales Consultant: Jm Mijares MD Abs.Imm.Granulocyte 0.04 k/uL Normal 0.00-0.30 [facility] Comment on above: Performed By: #### C DP, ALCB, BMP #### [facility] [address] [place] [address] Presales Consultant: Jm Mijares MD Abs.Neutrophil (Seg) 9.71 k/uL High 1.50-8.10 [facility] Comment on above: Performed By: #### C DP, ALCB, BMP #### [facility] [address] [place] [address] Presales Consultant: Jm Mijares MD Basophils/100 WBC (Bld) 0 % Normal 0-2 [facility] Comment on above: Performed By: #### C DP, ALCB, BMP #### [facility] [address] [place] [address] Presales Consultant: Jm Mijares MD Eosinophils/100 WBC (Bld) 0 % Low 1-4 [facility] Comment on above: Performed By: #### C DP, ALCB, BMP #### [facility] [address] [place] [address] Presales Consultant: Jm Mijares MD Erythrocyte distribution width (RBC) [Ratio] 13.2 % Normal 11.8-14.4 [facility] Comment on above: Performed By: #### C DP, ALCB, BMP #### [facility] [address] [place] [address] Presales Consultant: Jm Mijares MD Hematocrit (Bld) [Volume fraction] 37.9 % Normal 36.3-47.1 [facility] Comment on above: Performed By: #### C DP, ALCB, BMP #### [facility] [address] [place] [address] Presales Consultant: Jm Mijares MD Hemoglobin (Bld) [Mass/Vol] 12.7 g/dL Normal 11.9-15.1 [facility] Comment on above: Performed By: #### C DP, ALCB, BMP #### [facility] [address] [facility] [place] [address] Presales Consultant: Jm Mijares MD Immature granulocytes/100 WBC (Bld) 0 % Normal 0 [facility] Comment on above: Performed By: #### C DP, ALCB, BMP #### [facility] [address] [place] [address]. [place] [address] Presales Consultant: Jm Mijares MD Lymphocytes (Bld) [#/Vol] 1.21 10*3/uL Normal 1.10-3.70 [facility] Comment on above: Performed By: #### C DP, ALCB, BMP #### [facility] [address] [place] [address] Presales Consultant: Jm Mijares MD Lymphocytes/100 WBC (Bld) 11 % Low 24-43 [facility] Comment on above: Performed By: #### C DP, ALCB, BMP #### [facility] [address] [place] [address] Presales Consultant: Jm Mijares MD MCH (RBC) [Entitic mass] 30.0 pg Normal 25.2-33.5 [facility] Comment on above: Performed By: #### C DP, ALCB, BMP #### [facility] [address] [place] [address]. [place] [address] Presales Consultant: Jm Mijares MD MCHC (RBC) [Mass/Vol] 33.5 g/dL Normal 28.4-34.8 [facility] Comment on above: Performed By: #### C DP, ALCB, BMP #### [facility] [address] [place] [address] Presales Consultant: Jm Mijares MD MCV (RBC) [Entitic vol] 89.4 fL Normal 82.6-102.9 [facility] Comment on above: Performed By: #### C DP, ALCB, BMP #### [facility] [place] [address] Presales Consultant: Jm Mijares MD Monocytes (Bld) [#/Vol] 0.41 10*3/uL Normal 0.10-1.20 [facility] Comment on above: Performed By: #### C DP, ALCB, BMP #### [facility] [address] [place] [address]. [place] [address] Presales Consultant: Jm Mijares MD Monocytes/100 WBC (Bld) 4 % Normal 3-12 [facility] Comment on above: Performed By: #### C DP, ALCB, BMP #### [facility] [address] [place] [address]. [place] [address] Presales Consultant: Jm Mijares MD Neutrophil (Seg) 85 % High 36-65 [facility] Comment on above: Performed By: #### C DP, ALCB, BMP #### [facility] [address] [place] [address]. [place] [address] Presales Consultant: Jm Mijares MD NRBC Automated 0.0 per 100 WBC Normal 0.0 [facility] Comment on above: Performed By: #### C DP, ALCB, BMP #### [facility] [address] [place] [address]. [place] [address] Presales Consultant: Jm Mijares MD Platelet mean volume (Bld) [Entitic vol] 10.3 fL Normal 8.1-13.5 [facility] Comment on above: Performed By: #### C DP, ALCB, BMP #### [facility] [address] [place] [address] Presales Consultant: Jm Mijares MD Platelets (Bld) [#/Vol] 266 10*3/uL Normal 138-453 [facility] Comment on above: Performed By: #### C DP, ALCB, BMP #### [facility] [address] [place] [address]. [place] [address] Presales Consultant: Jm Mijares MD RBC (Bld) [#/Vol] 4.24 10*6/uL Normal 3.95-5.11 [facility] Comment on above: Performed By: #### C DP, ALCB, BMP #### [facility] [address] [place] [address]. [place] [address] Presales Consultant: Jm Mijares MD WBC (Bld) [#/Vol] 11.4 10*3/uL High 3.5-11.3 [facility] Comment on above: Performed By: #### C DP, ALCB, BMP #### [facility] [address] [place] [address]. [place] [address] Presales Consultant: Jm Mijares MD Drug Scr, Abuse, Uron 2021 Amphetamine(s),Ur Negative Normal NEG [facility] Comment on above: Result Comment: (Positive cutoff 1000 ng/mL) Performed By: #### U HCG, UMICAO, UAX, CLIFF #### [facility] [address] [place], [place] [address]ia [facility] [place] [address] Presales Consultant: Jm Mijares MD Barbiturate(s),Ur Negative Normal NEG [facility] Comment on above: Result Comment: (Positive cutoff 200 ng/mL) Performed By: #### U HCG, UMICAO, UAX, CLIFF #### [facility] [address] [place] [address] Presales Consultant: Jm Mijares MD Benzodiazepine(s) Negative Normal NEG [facility] Comment on above: Result Comment: (Positive cutoff 200 ng/mL) Performed By: #### U HCG, UMICAO, UAX, CLIFF #### [facility] [address] [place] [address] Presales Consultant: Jm Mijares MD Cannabinoid(s),Ur Positive Abnormal NEG [facility] Comment on above: Result Comment: (Positive cutoff 50 ng/mL) Performed By: #### U HCG, UMICAO, UAX, CLIFF #### [facility] [address] [place] [address] Presales Consultant: Jm Mijares MD Cocaine Metabolite Negative Normal NEG [facility] Comment on above: Result Comment: (Positive cutoff 300 ng/mL) Performed By: #### U HCG, UMICAO, UAX, CLIFF #### [facility] [address] [place] [address] Presales Consultant: Jm Mijares MD Fentanyl, Urine Negative Normal NEG [facility] Comment on above: Result Comment: (Positive cutoff 5 ng/ml) Performed By: #### U HCG, UMICAO, UAX, CLIFF #### [facility] [address] [place] [address] Presales Consultant: Jm Mijares MD Interpretive Info Assay provides medical screening only. The absence of expected drug(s) and/or Normal [facility] Comment on above: Result Comment: meta bolite(s) may indicate diluted or adulterated urine, limitations of testing or timing of collection. Testing for legal purposes should be confirmed by another method. To request confirmation of test result, please call the lab within 7 days of sample submission. Performed By: #### U HCG, UMICAO, UAX, CLIFF #### [facility] [address] [facility] [place] [address] Presales Consultant: Jm Mijares MD Methadone Ql (U) Negative Normal NEG [facility] Comment on above: Result Comment: (Positive cutoff 300 ng/mL) Performed By: #### U HCG, UMICAO, UAX, CLIFF #### [facility] [address] [place] [address]. [place] [address] Presales Consultant: Jm Mijares MD Opiate(s), Ur Negative Normal NEG [facility] Comment on above: Result Comment: (Positive cutoff 300 ng/mL) Performed By: #### U HCG, UMICAO, UAX, CLIFF #### [facility] [address] [place] [address] Presales Consultant: Jm Mijares MD Oxycodone, Urine Negative Normal NEG [facility] Comment on above: Result Comment: (Positive cutoff 100 ng/mL) Performed By: #### U HCG, UMICAO, UAX, CLIFF #### [facility] [address] [place] [address]. [place] [address] Presales Consultant: Jm Mijares MD Phencyclidine, Ur Negative Normal NEG [facility] Comment on above: Result Comment: (Positive cutoff 25 ng/mL) Performed By: #### U HCG, UMICAO, UAX, CLIFF #### [facility] [address] [place] [address]. [place] [address] Presales Consultant: Jm Mijares MD Ethanol Alcoholon 04-22-2022 Ethanol [Mass/Vol] mg/dL Normal <10 [facility] Comment on above: Performed By: #### C DP, ALCB, BMP #### [facility] [address] [place] [address] Presales Consultant: Jm Mijares MD Ethanol percent <0.010 Normal <0.010 [facility] Comment on above: Performed By: #### C DP, ALCB, BMP #### [facility] [address] [place] [address] Presales Consultant: Jm Mijares MD HCG, ,Urineon 04-22 Beta HCG ( test) Ql (U) Negative Normal NEG [facility] Comment on above: Result Comment: Spec imens [...] #### U HCG, UMICAO, UAX, CLIFF #### [facility] [address] [place] [address] Presales Consultant: Jm Mijares MD UA w/Reflex Cultureon 2021 Bilirubin, SemiQt,Ur Negative Normal NEG [facility] Comment on above: Performed By: #### U HCG, UMICAO, UAX, CLIFF #### [facility] [address] [place] [address]. [place] [address] Presales Consultant: Jm Mijares MD Blood, Urine TRACE Abnormal NEG [facility] Comment on above: Performed By: #### U HCG, UMICAO, UAX, CLIFF #### [facility] [address] [place] [address]. [place] [address] Presales Consultant: Jm Mijares MD Clarity (U) Clear Normal CLEAR [facility] Comment on above: Performed By: #### U HCG, UMICAO, UAX, CLIFF #### [facility] [address] [place] [address]. [place] [address] Presales Consultant: Jm Mijares MD Color (U) Yellow Normal YEL [facility] Comment on above: Performed By: #### U HCG, UMICAO, UAX, CLIFF #### [facility] [address] [facility] [place] [address] Presales Consultant: Jm Mijares MD Glucose Ql (U) Negative Normal NEG [facility] Comment on above: Performed By: #### U HCG, UMICAO, UAX, CLIFF #### [facility] [address] [facility] [place] [address] Presales Consultant: Jm Mijares MD Ketones Ql (U) Negative Normal NEG [facility] Comment on above: Performed By: #### U HCG, UMICAO, UAX, CLIFF #### [facility] [address] [place] [address]. [place] [address] Presales Consultant: Jm Mijares MD Leukocyte esterase Test strip Ql (U) Negative Normal NEG [facility] Comment on above: Performed By: #### U HCG, UMICAO, UAX, CLIFF #### [facility] [address] [place] [address]. [place] [address] Presales Consultant: Jm Mijares MD Nitrite,Ur Negative Normal NEG [facility] Comment on above: Performed By: #### U HCG, UMICAO, UAX, CLIFF #### [facility] [place] [address] Presales Consultant: Jm Mijares MD PH,Ur 6.0 Normal 5.0-8.0 [facility] Comment on above: Performed By: #### U HCG, UMICAO, UAX, CLIFF #### [facility] [place] [address] Presales Consultant: Jm Mijares MD Protein Ql (U) Negative Normal NEG [facility] Comment on above: Performed By: #### U HCG, UMICAO, UAX, CLIFF #### [facility] [address] [facility] [place] [address] Presales Consultant: Jm Mijares MD Spec. [place],Ur 1.020 Normal 1.005-1.030 [facility] Comment on above: Performed By: #### U HCG, UMICAO, UAX, CLIFF #### [facility] [address] [place] [address]. [place] [address] Presales Consultant: Jm Mijares MD Urobilinogen,Ur Normal Normal NORM [facility] Comment on above: Performed By: #### U HCG, UMICAO, UAX, CLIFF #### [facility] [address] [place] [address]. [place] [address] Presales Consultant: Jm Mijares MD Urinalysis,Microon 2 Bacteria RARE Abnormal NONE [facility] Comment on above: Performed By: #### U HCG, UMICAO, UAX, CLIFF #### [facility] [address] [place] [address]. [place] [address] Presales Consultant: Jm Mijares MD Epithelial cells LM Ql (Urine sed) 2 TO 5 Normal 0-5 [facility] Comment on above: Performed By: #### U HCG, UMICAO, UAX, CLIFF #### [facility] [place] [address] Presales Consultant: Jm Mijares MD Urine RBC's 10 TO 20 Normal 0-[address] [facility] Comment on above: Performed By: #### U HCG, UMICAO, UAX, CLIFF #### [facility] [address] [place] [address]. [place] [address] Presales Consultant: Jm Mijares MD Urine WBC's 0 TO 2 Normal 0-[address] [facility] Comment on above: Performed By: #### U HCG, YOSELIN TEJADA, CLIFF #### [facility] [address] [place] [id number] Presales Consultant: Jm Mijares MD XR ANKLE LT MIN 3 Von 2021 XR ANKLE LT MIN 3 V IMAGES REVIEWED: XR ANKLE LT MIN 3 V COMPARISON: None available. CLINICAL INDICATION: Pain FINDINGS/IMPRESSION: 1. No radiographic evidence of acute osseous abnormality of the left ankle. 2. Moderate lateral ankle soft tissue swelling. Electronically authenticated by: KATI QURESHI Date: 2021-10-02 20:27 Normal [facility] XR HAND LT MIN 3Von 09-06-19 [...] by: ANDREZ NAVARRO Date: 2021-09-05 08:43 Normal [facility] 06-22-2020 L Specimen: [id number] Received: 06/22/20 Status: RAJAN Su Num: [id number] Spec Type: Surgical Subm Dr: Xavier Younger MD Tissues: A Skin-Other than Cyst, tag, debridement or plastic repair (L FOREHEAD) Procedures: HE Stain, Gross/Micro L4 Patient Age/Sex Location Account Attending Physician Jenni Sharma 39/F DANILO [id number] Xavier Younger MD SPEC NUM: [id number] RECD: 06/22/20 STATUS: RAJAN SU NUM: [id number] YOSEF: 06/22/20- SUBM DR: Xavier Younger MD ENTERED: 06/22/20 CHAS MARTINEZ: SPEC TYPE: Surgical DEPT: S ORDERED: HE Stain, [...] microscopic findings support the above pathologic diagnosis. [id number] Specimen: [id number] Received: 06/22/20 Status: RAJAN Su Num: [id number] Spec Type: Surgical Subm Dr: Xavier Younger MD Tissues: A Skin-Other than Cyst, tag, debridement or plastic repair (L FOREHEAD) Procedures: HE Stain, Gross/Micro L4 Patient: Jenni Sharma [id number] (Continued) Signed (signature on file) Dallas Mckenzie MD 06/23/20 1731 Normal [facility] Encounters Encounter Date Encounter Type Care Provider Facility Start: 06-28-2022 End: 06-28-[address] LEXY POTTER Facility:[facility] Start: 04-22-2022 End: 04-22-2022 Emergency department patient visit [facility] Start: 10-02-2021 End: 10-02-2021 ambulatory [place] ALEX Facility:[facility] Start: 09-05-2021 End: 09-05-[address] DOCTOR PRADHAN Facility:[facility] Start: 06-22-2020 End: 06-22-2020 Departed Referred Xavier Younger [facility] [place] Payers Date Payer Category Payer Unknown [id number] 1980 Unknown [id number] 2.16.84 [id number] 1980 Unknown [id number] 2.16.84 [id number] 1980 Unknown [id number] 2.16.84 [id number] 1959 Unknown [id number] Self-pay Self Pay [id number] Social History Date Type Detail Facility Tobacco smoking stat [facility] Unknown if ever smoked [facility] Start: 1980 Sex Assigned At Female F [facility] Goals Date Patient Goal Desired Activity [...] section and content) DATE CREATED AUTHOR 06/28/2020 [facility] DATE CREATED AUTHOR AUTHOR'S ORGANIZ ATION 04/22/2022 [facility] DATE CREATED AUTHOR AUTHOR'S ORGANIZ ATION 06/29/2022 [facility]ORDS PERTAINING TO PATIENTS WHO [...] BE BASED ON THE PRIMARY CLINICAL RECORDS. [employer] provides no warranty or guarantee of the accuracy or completeness of information in this document.
[2023-10-09 16:38] LABS: Alanine Aminotransferase 27 U/L (14-59); Albumin Globulin Ratio 1.2; Albumin Level 4.1 g/dL (3.4-5.0); Alkaline Phosphatase 70 U/L (46-116); Anion Gap 11.8; Aspartate Amino Transferase 21 U/L (15-37); BUN Creatinine Ratio 18.1; Bilirubin Total 0.7 mg/dL (0.2-1.0); Calcium 8.8 mg/dL (8.5-10.1); Carbon Dioxide 26.8 mmol/L (21.0-32.0); Chloride 102 mmol/L (98-107); Estimated GFR (African America >60 (>=60); Estimated GFR (Non-African Ame >60 (>=60); Globulin 3.4 g/dL; Glucose 83 mg/dL (74-106); Potassium 3.6 mmol/L (3.5-5.1); Sodium 137 mmol/L (136-145); Total Protein 7.5 g/dL (6.4-8.2)
== END 2023-10-09 15:18 | disposition home or self-care (01) ==
LOC: LAB 15:18
PROVIDERS: PCP Family Medicine; Visit Provider Family Medicine
DX: E87.6 Hypokalemia (principal)
CPT/HCPCS: 36415; 80053

== ENCOUNTER 2024-04-19 09:41 | Outpatient (OUT) | payer OTHER, SELFPAY ==
--- OUTSIDE RECORDS SUMMARY | 2024-04-19 09:44 | XMS_ITS | CCD ---
Author Organization [facility] Care Team Providers Care Urinalysis Technician Name Role Phone Xavier Younger Attending Provider [...] 09-06-2021 Episodic Other aftercare (1 source) Other assisted (current) drug therapy; Translations: [OTH [facility] CURRENT DRUG THERAPY] Onset: 09-06-2021 Episodic Other [...] Results Test Name Value Interpretation Reference Range [facility] Basic Metabolic Profon 04-22 Anion gap [Moles/Vol] 12 mmol/L Normal - [facility] Comment on above: Performed By: #### C DP, ALCB, BMP #### [facility] [address] [place] [address] Drum Sealer: Jm Mijares MD BUN/CRE Ratio 18 Normal - [facility] Comment on above: Performed By: #### C DP, ALCB, BMP #### [facility] [address] [place] [address] Drum Sealer: Jm Mijares MD Calcium [Mass/Vol] 9.3 mg/dL Normal 8.6-10.4 [facility] Comment on above: Performed By: #### C DP, ALCB, BMP #### [facility] [address] [place] [address] Drum Sealer: Jm Mijares MD Chloride [Moles/Vol] 103 mmol/L Normal 98-107 [facility] Comment on above: Performed By: #### C DP ALCB, BMP #### [facility] [address] [facility] [address] Drum Sealer: Jm Mijares MD CO2 [Moles/Vol] 24 mmol/L Normal 20-31 [facility] Comment on above: Performed By: #### C DP ALCB, BMP #### [facility] [address] [facility] [address] Drum Sealer: Jm Mijares MD Creatinine [Mass/Vol] 0.84 mg/dL Normal 0.50-0.90 [facility] Comment on above: Performed By: #### C HARMONY ALCB, BMP #### [facility] [address] [facility] [address] Drum Sealer: Jm Mijares MD GFR/1.73 sq M.predicted among non-blacks MDRD (S/P/Bld) [Vol rate/Area] mL/min/{1.73_m2} Normal >60 [facility] Comment on above: Result Comment: [...] By: #### C DP ALCB, BMP #### [facility] [address] [facility] [address] Drum Sealer: Jm Mijares MD Glucose [Mass/Vol] 127 mg/dL High 70-99 [facility] Comment on above: Performed By: #### C DP, ALCB, BMP #### [facility] [address] Drum Sealer: Jm Mijares MD Potassium [Moles/Vol] 3.9 mmol/L Normal 3.7-5.3 [facility] Comment on above: Performed By: #### C DP, ALCB, BMP #### [facility] [address] [place] [address] Drum Sealer: Jm Mijares MD Sodium [Moles/Vol] 139 mmol/L Normal 135-144 [facility] Comment on above: Performed By: #### C DP, ALCB, BMP #### [facility] [address] [place] [address] Drum Sealer: Jm Mijares MD Urea nitrogen [Mass/Vol] 15 mg/dL Normal 6-20 [facility] Comment on above: Performed By: #### C DP, ALCB, BMP #### [facility] [address] [place] [address] Drum Sealer: Jm Mijares MD CBC with Diffon 04-22-2022 Abs. Basophil 0.03 k/uL Normal 0.00-0.20 [facility] Comment on above: Performed By: #### C DP, ALCB, BMP #### [facility] [address] [place] [address] Drum Sealer: Jm Mijares MD Abs. Eosinophil <0.03 Normal 0.00-0.44 [facility] Comment on above: Performed By: #### C DP, ALCB, BMP #### [facility] [address] [place] [address] Drum Sealer: Jm Mijares MD Abs.Imm.Granulocyte 0.04 k/uL Normal 0.00-0.30 [facility] Comment on above: Performed By: #### C DP, ALCB, BMP #### [facility] [address] [place] [address] Drum Sealer: Jm Mijares MD Abs.Neutrophil (Seg) 9.71 k/uL High 1.50-8.10 [facility] Comment on above: Performed By: #### C DP, ALCB, BMP #### [facility] [address] [place] [address] Drum Sealer: Jm Mijares MD Basophils/100 WBC (Bld) 0 % Normal 0-2 [facility] Comment on above: Performed By: #### C DP, ALCB, BMP #### [facility] [address] [place] [address] Drum Sealer: Jm Mijares MD Eosinophils/100 WBC (Bld) 0 % Low 1-4 [facility] Comment on above: Performed By: #### C DP, ALCB, BMP #### [facility] [address] [place] [address] Drum Sealer: Jm Mijares MD Erythrocyte distribution width (RBC) [Ratio] 13.2 % Normal 11.8-14.4 [facility] Comment on above: Performed By: #### C DP, ALCB, BMP #### [facility] [address] [place] [address] Drum Sealer: Jm Mijares MD Hematocrit (Bld) [Volume fraction] 37.9 % Normal 36.3-47.1 [facility] Comment on above: Performed By: #### C DP, ALCB, BMP #### [facility] [address] [place] [address] Drum Sealer: Jm Mijares MD Hemoglobin (Bld) [Mass/Vol] 12.7 g/dL Normal 11.9-15.1 [facility] Comment on above: Performed By: #### C DP, ALCB, BMP #### [facility] [address] [facility] [address] Drum Sealer: Jm Mijares MD Immature granulocytes/100 WBC (Bld) 0 % Normal 0 [facility] Comment on above: Performed By: #### C DP, ALCB, BMP #### [facility] [address] [place] [address]. [place] [address] Drum Sealer: Jm Mijares MD Lymphocytes (Bld) [#/Vol] 1.21 10*3/uL Normal 1.10-3.70 [facility] Comment on above: Performed By: #### C DP, ALCB, BMP #### [facility] [address] [place] [address] Drum Sealer: Jm Mijares MD Lymphocytes/100 WBC (Bld) 11 % Low 24-43 [facility] Comment on above: Performed By: #### C DP, ALCB, BMP #### [facility] [address] [place] [address] Drum Sealer: Jm Mijares MD MCH (RBC) [Entitic mass] 30.0 pg Normal 25.2-33.5 [facility] Comment on above: Performed By: #### C DP, ALCB, BMP #### [facility] [address] [place] [address]. [place] [address] Drum Sealer: Jm Mijares MD MCHC (RBC) [Mass/Vol] 33.5 g/dL Normal 28.4-34.8 [facility] Comment on above: Performed By: #### C DP, ALCB, BMP #### [facility] [address] [facility] [place] [address] Drum Sealer: Jm Mijares MD MCV (RBC) [Entitic vol] 89.4 fL Normal 82.6-102.9 [facility] Comment on above: Performed By: #### C DP, ALCB, BMP #### [facility] [address] Drum Sealer: Jm Mijares MD Monocytes (Bld) [#/Vol] 0.41 10*3/uL Normal 0.10-1.20 [facility] Comment on above: Performed By: #### C DP, ALCB, BMP #### [facility] [address] [place] [address]. [place] [address] Drum Sealer: Jm Mijares MD Monocytes/100 WBC (Bld) 4 % Normal 3-12 [facility] Comment on above: Performed By: #### C DP, ALCB, BMP #### [facility] [address] [place] [address]. [place] [address] Drum Sealer: Jm Mijares MD Neutrophil (Seg) 85 % High 36-65 [facility] Comment on above: Performed By: #### C DP, ALCB, BMP #### [facility] [address] [place] [address]. [place] [address] Drum Sealer: Jm Mijares MD NRBC Automated 0.0 per 100 WBC Normal 0.0 [facility] Comment on above: Performed By: #### C DP, ALCB, BMP #### [facility] [address] [place] [address]. [place] [address] Drum Sealer: Jm Mijares MD Platelet mean volume (Bld) [Entitic vol] 10.3 fL Normal 8.1-13.5 [facility] Comment on above: Performed By: #### C DP, ALCB, BMP #### [facility] [address] [facility] [place] [address] Drum Sealer: Jm Mijares MD Platelets (Bld) [#/Vol] 266 10*3/uL Normal 138-453 [facility] Comment on above: Performed By: #### C DP, ALCB, BMP #### [facility] [address] [place] [address]. [place] [address] Drum Sealer: Jm Mijares MD RBC (Bld) [#/Vol] 4.24 10*6/uL Normal 3.95-5.11 [facility] Comment on above: Performed By: #### C DP, ALCB, BMP #### [facility] [address] [place] [address]. [place] [address] Drum Sealer: Jm Mijares MD WBC (Bld) [#/Vol] 11.4 10*3/uL High 3.5-11.3 [facility] Comment on above: Performed By: #### C DP, ALCB, BMP #### [facility] [address] [place] [address]. [place] [address] Drum Sealer: Jm Mijares MD Drug Scr, Abuse, Uron 2021 Amphetamine(s),Ur Negative Normal NEG [facility] Comment on above: Result Comment: (Positive cutoff 1000 ng/mL) Performed By: #### U HCG, UMICAO, UAX, CLIFF #### [facility] [address] [place], [place] [address]ia [facility] [place] [address] Drum Sealer: Jm Mijares MD Barbiturate(s),Ur Negative Normal NEG [facility] Comment on above: Result Comment: (Positive cutoff 200 ng/mL) Performed By: #### U HCG, UMICAO, UAX, CLIFF #### [facility] [address] [place] [address] Drum Sealer: Jm Mijares MD Benzodiazepine(s) Negative Normal NEG [facility] Comment on above: Result Comment: (Positive cutoff 200 ng/mL) Performed By: #### U HCG, UMICAO, UAX, CLIFF #### [facility] [address] [place] [address] Drum Sealer: Jm Mijares MD Cannabinoid(s),Ur Positive Abnormal NEG [facility] Comment on above: Result Comment: (Positive cutoff 50 ng/mL) Performed By: #### U HCG, UMICAO, UAX, CLIFF #### [facility] [address] [place] [address] Drum Sealer: Jm Mijares MD Cocaine Metabolite Negative Normal NEG [facility] Comment on above: Result Comment: (Positive cutoff 300 ng/mL) Performed By: #### U HCG, UMICAO, UAX, CLIFF #### [facility] [address] [place] [address] Drum Sealer: Jm Mijares MD Fentanyl, Urine Negative Normal NEG [facility] Comment on above: Result Comment: (Positive cutoff 5 ng/ml) Performed By: #### U HCG, UMICAO, UAX, CLIFF #### [facility] [address] [place] [address] Drum Sealer: Jm Mijares MD Interpretive Info Assay provides medical screening only. The absence of expected drug(s) and/or Normal [facility] Comment on above: Result Comment: meta bolite(s) may indicate diluted or adulterated urine, limitations of testing or timing of collection. Testing for legal purposes should be confirmed by another method. To request confirmation of test result, please call the lab within 7 days of sample submission. Performed By: #### U HCG, UMICAO, UAX, CLIFF #### [facility] [address] [facility] [address] Drum Sealer: Jm Mijares MD Methadone Ql (U) Negative Normal NEG [facility] Comment on above: Result Comment: (Positive cutoff 300 ng/mL) Performed By: #### U HCG, UMICAO, UAX, CLIFF #### [facility] [address] [place] [address]. [place] [address] Drum Sealer: Jm Mijares MD Opiate(s), Ur Negative Normal NEG [facility] Comment on above: Result Comment: (Positive cutoff 300 ng/mL) Performed By: #### U HCG, UMICAO, UAX, CLIFF #### [facility] [address] [place] [address] Drum Sealer: Jm Mijares MD Oxycodone, Urine Negative Normal NEG [facility] Comment on above: Result Comment: (Positive cutoff 100 ng/mL) Performed By: #### U HCG, UMICAO, UAX, CLIFF #### [facility] [address] [place] [address]. [place] [address] Drum Sealer: Jm Mijares MD Phencyclidine, Ur Negative Normal NEG [facility] Comment on above: Result Comment: (Positive cutoff 25 ng/mL) Performed By: #### U HCG, UMICAO, UAX, CLIFF #### [facility] [address] [place] [address]. [place] [address] Drum Sealer: Jm Mijares MD Ethanol Alcoholon 04-22-2022 Ethanol [Mass/Vol] mg/dL Normal <10 [facility] Comment on above: Performed By: #### C DP, ALCB, BMP #### [facility] [address] [place] [address] Drum Sealer: Jm Mijares MD Ethanol percent <0.010 Normal <0.010 [facility] Comment on above: Performed By: #### C DP, ALCB, BMP #### [facility] [address] [place] [address] Drum Sealer: Jm Mijares MD HCG, ,Urineon 04-22 Beta HCG ( test) Ql (U) Negative Normal NEG [facility] Comment on above: Result Comment: [...] #### U HCG, UMICAO, UAX, CLIFF #### [facility] [address] [place] [address] Drum Sealer: Jm Mijares MD UA w/Reflex Cultureon 2021 Bilirubin, SemiQt,Ur Negative Normal NEG [facility] Comment on above: Performed By: #### U HCG, UMICAO, UAX, CLIFF #### [facility] [address] [place] [address]. [place] [address] Drum Sealer: Jm Mijares MD Blood, Urine TRACE Abnormal NEG [facility] Comment on above: Performed By: #### U HCG, UMICAO, UAX, CLIFF #### [facility] [address] [place] [address]. [place] [address] Drum Sealer: Jm Mijares MD Clarity (U) Clear Normal CLEAR [facility] Comment on above: Performed By: #### U HCG, UMICAO, UAX, CLIFF #### [facility] [address] [place] [address]. [place] [address] Drum Sealer: Jm Mijares MD Color (U) Yellow Normal YEL [facility] Comment on above: Performed By: #### U HCG, UMICAO, UAX, CLIFF #### [facility] [address] [facility] [place] [address] Drum Sealer: Jm Mijares MD Glucose Ql (U) Negative Normal NEG [facility] Comment on above: Performed By: #### U HCG, UMICAO, UAX, CLIFF #### [facility] [address] [facility] [address] Drum Sealer: Jm Mijares MD Ketones Ql (U) Negative Normal NEG [facility] Comment on above: Performed By: #### U HCG, UMICAO, UAX, CLIFF #### [facility] [address] [place] [address]. [place] [address] Drum Sealer: Jm Mijares MD Leukocyte esterase Test strip Ql (U) Negative Normal NEG [facility] Comment on above: Performed By: #### U HCG, UMICAO, UAX, CLIFF #### [facility] [address] [place] [address]. [place] [address] Drum Sealer: Jm Mijares MD Nitrite,Ur Negative Normal NEG [facility] Comment on above: Performed By: #### U HCG, UMICAO, UAX, CLIFF #### [facility] [address] Drum Sealer: Jm Mijares MD PH,Ur 6.0 Normal 5.0-8.0 [facility] Comment on above: Performed By: #### U HCG, UMICAO, UAX, CLIFF #### [facility] [address] Drum Sealer: Jm Mijares MD Protein Ql (U) Negative Normal NEG [facility] Comment on above: Performed By: #### U HCG, UMICAO, UAX, CLIFF #### [facility] [address] [facility] [address] Drum Sealer: Jm Mijares MD Spec. Myra,Ur 1.020 Normal 1.005-1.030 [facility] Comment on above: Performed By: #### U HCG, UMICAO, UAX, CLIFF #### [facility] [address] [place] [address]. [place] [address] Drum Sealer: Jm Mijares MD Urobilinogen,Ur Normal Normal NORM [facility] Comment on above: Performed By: #### U HCG, UMICAO, UAX, CLIFF #### [facility] [address] [place] [address]. [place] [address] Drum Sealer: Jm Mijares MD Urinalysis,Microon 2 Bacteria RARE Abnormal NONE [facility] Comment on above: Performed By: #### U HCG, UMICAO, UAX, CLIFF #### [facility] [address] [place] [address]. [place] [address] Drum Sealer: Jm Mijares MD Epithelial cells LM Ql (Urine sed) 2 TO 5 Normal 0-5 [facility] Comment on above: Performed By: #### U HCG, UMICAO, UAX, CLIFF #### [facility] [address] Drum Sealer: Jm Mijares MD Urine RBC's 10 TO 20 Normal 0-2 [facility] Comment on above: Performed By: #### U HCG, UMICAO, UAX, CLIFF #### [facility] [address] [place] [address]. [place] [address] Drum Sealer: Jm Mijares MD Urine WBC's 0 TO 2 Normal 0-5 [facility] Comment on above: Performed By: #### U HCG, YOSELIN TEJADA, CLIFF #### [facility] [address] [place] [id number] Drum Sealer: Jm Mijares MD XR ANKLE LT MIN 3 Von 2021 XR ANKLE LT MIN 3 V IMAGES REVIEWED: XR ANKLE LT MIN 3 V COMPARISON: None available. CLINICAL INDICATION: Pain FINDINGS/IMPRESSION: 1. No radiographic evidence of acute osseous abnormality of the left ankle. 2. Moderate lateral ankle soft tissue swelling. Electronically authenticated by: KATI QURESHI Date: 2021-10-02 20:27 Normal [facility] XR HAND LT MIN 3Von 09-06-19 XR [...] by: ANDREZ NAVARRO Date: 2021-09-05 08:43 Normal [facility] Williams 06-22-2020 L Specimen: [id number] Received: 06/22/20 Status: RAJAN Su Num: [id number] Spec Type: Surgical Subm Dr: Xavier Younger MD Tissues: A Skin-Other than Cyst, tag, debridement or plastic repair (L FOREHEAD) Procedures: HE Stain, Gross/Micro L4 Patient Age/Sex Location Account Attending Physician Jenni Sharma 39/F [place] [id number] Xavier Younger MD SPEC NUM: [id number] RECD: 06/22/20 STATUS: RAJAN SU NUM: [id number] YOSEF: 06/22/20- SUBM DR: Xavier Younger MD [...] microscopic findings support the above pathologic diagnosis. [id number] Specimen: [id number] Received: 06/22/20 Status: RAJAN Su Num: [id number] Spec Type: Surgical Subm Dr: Xavier Younger MD Tissues: A Skin-Other than Cyst, tag, debridement or plastic repair (L FOREHEAD) Procedures: HE Stain, Gross/Micro L4 Patient: Jenni Sharma [id number] (Continued) Signed (signature on file) Dallas Mckenzie MD 06/23/20 1731 Normal [facility] Encounters Encounter Date Encounter Type Care Provider Facility Start: 06-28-2022 End: 06-28-[address] LEXY POTTER Facility:[facility] Start: 04-22-2022 End: 04-22-2022 Emergency department patient visit [facility] DE[facility] Start: 10-02-2021 End: 10-02-2021 ambulatory BERLIN ALEX Facility:[facility] Start: 09-05-2021 End: 09-05-[address] DOCTOR PRADHAN Facility:[facility] Start: 06-22-2020 End: 06-22-2020 Departed Referred Xavier Younger [facility] [place] Payers Date Payer Category Payer Unknown [id number] [id number] [id number] 1980 Unknown [id number] [id number] [id number] 1980 Unknown [id number] [id number] [id number] 1980 Unknown [id number] [id number] [id number] 1959 Unknown [id number] Self-pay Self Pay [id number] Social History Date Type Detail Facility Tobacco smoking stat [facility] Unknown if ever smoked [facility] Start: 1980 Sex Assigned At Female F [facility] Goals Date Patient Goal Desired [...] section and content) DATE CREATED AUTHOR 06/28/2020 [facility] DATE CREATED AUTHOR AUTHOR'S ORGANIZ ATION 04/22/2022 [facility] DATE CREATED AUTHOR AUTHOR'S ORGANIZ ATION 06/29/2022 [facility] PERTAINING TO PATIENTS WHO ARE [...] BE BASED ON THE PRIMARY CLINICAL RECORDS. [employer] provides no warranty or guarantee of the accuracy or completeness of information in this document.
[2024-04-19 10:15] LABS: Basophils Percent Auto 0.5 % (0.2-2.0); Eosinophils Absolute Auto 0.1 10^3/uL (0.0-0.7); Eosinophils Percent Auto 1.7 % (0.9-7.0); Hematocrit 39.4 % (36.0-48.0); Hemoglobin 13.1 g/dL (12.0-16.0); Immature Granulocytes Abs Auto 0.03 10^3/uL (0.00-0.03); Immature Granulocytes Pct Auto 0.5 % (0.0-0.5); Lymphocytes Absolute Auto 1.8 10^3/uL (1.2-3.8); Lymphocytes Percent Auto 29.4 % (20.5-60.0); Mean Corpuscular HGB Conc 33.2 g/dL (29.9-35.2); Mean Corpuscular Hemoglobin 30.6 pg (26.7-34.0); Mean Corpuscular Volume 92.1 fL (81.0-99.0); Monocytes Absolute Auto 0.4 10^3/uL (0.3-0.8); Monocytes Percent Auto 6.4 % (1.7-12.0); Neutrophils Absolute Auto 3.7 10^3/uL (1.4-6.5); Neutrophils Percent Auto 61.5 % (43.0-75.0); Platelet Count 254 10^3/uL (150-450); Red Blood Count 4.28 10^6/uL (4.20-5.40); Red Cell Distribution Width 13.1 % (11.0-15.0)
[2024-04-19 10:48] LABS: Alanine Aminotransferase 20 U/L (14-59); Albumin Globulin Ratio 1.1; Albumin Level 3.6 g/dL (3.4-5.0); Alkaline Phosphatase 56 U/L (46-116); Anion Gap 10.9; Aspartate Amino Transferase 17 U/L (15-37); BUN Creatinine Ratio 12.8; Bilirubin Total 0.4 mg/dL (0.2-1.0); Calcium 8.5 mg/dL (8.5-10.1); Carbon Dioxide 29.3 mmol/L (21.0-32.0); Chloride 107 mmol/L (98-107); Cholesterol 198 mg/dL (<=200); Estimated GFR (African America >60 (>=60 mL/min/1.73m^2); Estimated GFR (Non-African Ame >60 (>=60 mL/min/1.73m^2); Globulin 3.2 g/dL; Glucose 97 mg/dL (74-106); HDL Cholesterol 67 mg/dL (40-60); Potassium 4.2 mmol/L (3.5-5.1); Sodium 143 mmol/L (136-145); TSH W/ REFLEX FT4 2.693 uIU/mL (0.358-3.740); Total Protein 6.8 g/dL (6.4-8.2); Triglycerides 51 mg/dL (<=150); VLDL CHOLESTEROL 10.2 mg/dL
== END 2024-04-19 09:42 | disposition home or self-care (01) ==
LOC: LAB 09:42
DX: R53.82 Chronic fatigue, unspecified (principal); I10 Essential (primary) hypertension
CPT/HCPCS: 36415; 80053; 80061; 82306; 83540; 84443; 85025

== ENCOUNTER 2024-05-16 10:34 | Outpatient (OUT) | payer OTHER, SELFPAY ==
--- OUTSIDE RECORDS SUMMARY | 2024-05-16 11:03 | XMS_ITS | CCD ---
Author Organization [facility] Care Team Providers Care Solder Sprayer Name Role Phone Xavier Younger Attending Provider [...] 09-06-2021 Episodic Other aftercare (1 source) Other mcfp (current) drug therapy; Translations: [OTH PRISON CURRENT DRUG THERAPY] Onset: 09-06-2021 Episodic Other [...] Results Test Name Value Interpretation Reference Range [facility] Basic Metabolic Profon 04-22 Anion gap [Moles/Vol] 12 mmol/L Normal - [facility] Comment on above: Performed By: #### C DP, ALCB, BMP #### [facility] [address] [place] [address] Ethylbenzene Oxidizer: Jm Mijares MD BUN/CRE Ratio 18 Normal - [facility] Comment on above: Performed By: #### C DP, ALCB, BMP #### [facility] [address] [place] [address] Ethylbenzene Oxidizer: Jm Mijares MD Calcium [Mass/Vol] 9.3 mg/dL Normal 8.6-10.4 [facility] Comment on above: Performed By: #### C DP, ALCB, BMP #### [facility] [address] [place] [address] Ethylbenzene Oxidizer: Jm Mijares MD Chloride [Moles/Vol] 103 mmol/L Normal 98-107 [facility] Comment on above: Performed By: #### C DP ALCB, BMP #### [facility] [address] [place] [address] Ethylbenzene Oxidizer: Jm Mijares MD CO2 [Moles/Vol] 24 mmol/L Normal 20-31 [facility] Comment on above: Performed By: #### C DP ALCB, BMP #### [facility] [address] [place] [address] Ethylbenzene Oxidizer: Jm Mijares MD Creatinine [Mass/Vol] 0.84 mg/dL Normal 0.50-0.90 [facility] Comment on above: Performed By: #### C HARMONY ALCB, BMP #### [facility] [address] [place] [address] Ethylbenzene Oxidizer: Jm Mijares MD GFR/1.73 sq M.predicted among non-blacks MDRD (S/P/Bld) [Vol rate/Area] mL/min/{1.73_m2} Normal >60 [facility] Comment on above: Result Comment: [...] By: #### C DP ALCB, BMP #### [facility] [address] [place] [address] Ethylbenzene Oxidizer: Jm Mijares MD Glucose [Mass/Vol] 127 mg/dL High 70-99 [facility] Comment on above: Performed By: #### C DP, ALCB, BMP #### [facility] [place] [address] Ethylbenzene Oxidizer: Jm Mijares MD Potassium [Moles/Vol] 3.9 mmol/L Normal 3.7-5.3 [facility] Comment on above: Performed By: #### C DP, ALCB, BMP #### [facility] [address] [place] [address] Ethylbenzene Oxidizer: Jm Mijares MD Sodium [Moles/Vol] 139 mmol/L Normal 135-144 [facility] Comment on above: Performed By: #### C DP, ALCB, BMP #### [facility] [address] [place] [address] Ethylbenzene Oxidizer: Jm Mijares MD Urea nitrogen [Mass/Vol] 15 mg/dL Normal 6-20 [facility] Comment on above: Performed By: #### C DP, ALCB, BMP #### [facility] [address] [place] [address] Ethylbenzene Oxidizer: Jm Mijares MD CBC with Diffon 04-22-2022 Abs. Basophil 0.03 k/uL Normal 0.00-0.20 [facility] Comment on above: Performed By: #### C DP, ALCB, BMP #### [facility] [address] [place] [address] Ethylbenzene Oxidizer: Jm Mijares MD Abs. Eosinophil <0.03 Normal 0.00-0.44 [facility] Comment on above: Performed By: #### C DP, ALCB, BMP #### [facility] [address] [place] [address] Ethylbenzene Oxidizer: Jm Mijares MD Abs.Imm.Granulocyte 0.04 k/uL Normal 0.00-0.30 [facility] Comment on above: Performed By: #### C DP, ALCB, BMP #### [facility] [address] [place] [address] Ethylbenzene Oxidizer: Jm Mijares MD Abs.Neutrophil (Seg) 9.71 k/uL High 1.50-8.10 [facility] Comment on above: Performed By: #### C DP, ALCB, BMP #### [facility] [address] [place] [address] Ethylbenzene Oxidizer: Jm Mijares MD Basophils/100 WBC (Bld) 0 % Normal 0-2 [facility] Comment on above: Performed By: #### C DP, ALCB, BMP #### [facility] [address] [place] [address] Ethylbenzene Oxidizer: Jm Mijares MD Eosinophils/100 WBC (Bld) 0 % Low 1-4 [facility] Comment on above: Performed By: #### C DP, ALCB, BMP #### [facility] [address] [place] [address] Ethylbenzene Oxidizer: Jm Mijares MD Erythrocyte distribution width (RBC) [Ratio] 13.2 % Normal 11.8-14.4 [facility] Comment on above: Performed By: #### C DP, ALCB, BMP #### [facility] [address] [place] [address] Ethylbenzene Oxidizer: Jm Mijares MD Hematocrit (Bld) [Volume fraction] 37.9 % Normal 36.3-47.1 [facility] Comment on above: Performed By: #### C DP, ALCB, BMP #### [facility] [address] [place] [address] Ethylbenzene Oxidizer: Jm Mijares MD Hemoglobin (Bld) [Mass/Vol] 12.7 g/dL Normal 11.9-15.1 [facility] Comment on above: Performed By: #### C DP, ALCB, BMP #### [facility] [address] [place] [address] Ethylbenzene Oxidizer: Jm Mijares MD Immature granulocytes/100 WBC (Bld) 0 % Normal 0 [facility] Comment on above: Performed By: #### C DP, ALCB, BMP #### [facility] [address] [place] [address]. [place] [address] Ethylbenzene Oxidizer: Jm Mijares MD Lymphocytes (Bld) [#/Vol] 1.21 10*3/uL Normal 1.10-3.70 [facility] Comment on above: Performed By: #### C DP, ALCB, BMP #### [facility] [address] [place] [address] Ethylbenzene Oxidizer: Jm Mijares MD Lymphocytes/100 WBC (Bld) 11 % Low 24-43 [facility] Comment on above: Performed By: #### C DP, ALCB, BMP #### [facility] [address] [place] [address] Ethylbenzene Oxidizer: Jm Mijares MD MCH (RBC) [Entitic mass] 30.0 pg Normal 25.2-33.5 [facility] Comment on above: Performed By: #### C DP, ALCB, BMP #### [facility] [address] [place] [address]. [place] [address] Ethylbenzene Oxidizer: Jm Mijares MD MCHC (RBC) [Mass/Vol] 33.5 g/dL Normal 28.4-34.8 [facility] Comment on above: Performed By: #### C DP, ALCB, BMP #### [facility] [address] [place] [facility] [place] [address] Ethylbenzene Oxidizer: Jm Mijares MD MCV (RBC) [Entitic vol] 89.4 fL Normal 82.6-102.9 [facility] Comment on above: Performed By: #### C DP, ALCB, BMP #### [facility] [place] [address] Ethylbenzene Oxidizer: Jm Mijares MD Monocytes (Bld) [#/Vol] 0.41 10*3/uL Normal 0.10-1.20 [facility] Comment on above: Performed By: #### C DP, ALCB, BMP #### [facility] [address] [place] [address]. [place] [address] Ethylbenzene Oxidizer: Jm Mijares MD Monocytes/100 WBC (Bld) 4 % Normal 3-12 [facility] Comment on above: Performed By: #### C DP, ALCB, BMP #### [facility] [address] [place] [address]. [place] [address] Ethylbenzene Oxidizer: Jm Mijares MD Neutrophil (Seg) 85 % High 36-65 [facility] Comment on above: Performed By: #### C DP, ALCB, BMP #### [facility] [address] [place] [address]. [place] [address] Ethylbenzene Oxidizer: Jm Mijares MD NRBC Automated 0.0 per 100 WBC Normal 0.0 [facility] Comment on above: Performed By: #### C DP, ALCB, BMP #### [facility] [address] [place] [address]. [place] [address] Ethylbenzene Oxidizer: Jm Mijares MD Platelet mean volume (Bld) [Entitic vol] 10.3 fL Normal 8.1-13.5 [facility] Comment on above: Performed By: #### C DP, ALCB, BMP #### [facility] [address] [place] [facility] [place] [address] Ethylbenzene Oxidizer: Jm Mijares MD Platelets (Bld) [#/Vol] 266 10*3/uL Normal 138-453 [facility] Comment on above: Performed By: #### C DP, ALCB, BMP #### [facility] [address] [place] [address]. [place] [address] Ethylbenzene Oxidizer: Jm Mijares MD RBC (Bld) [#/Vol] 4.24 10*6/uL Normal 3.95-5.11 [facility] Comment on above: Performed By: #### C DP, ALCB, BMP #### [facility] [address] [place] [address]. [place] [address] Ethylbenzene Oxidizer: Jm Mijares MD WBC (Bld) [#/Vol] 11.4 10*3/uL High 3.5-11.3 [facility] Comment on above: Performed By: #### C DP, ALCB, BMP #### [facility] [address] [place] [address]. [place] [address] Ethylbenzene Oxidizer: Jm Mijares MD Drug Scr, Abuse, Uron 2021 Amphetamine(s),Ur Negative Normal NEG [facility] Comment on above: Result Comment: (Positive cutoff 1000 ng/mL) Performed By: #### U HCG, UMICAO, UAX, CLIFF #### [facility] [address] [place], [place] [address]ia [facility] [place] [address] Ethylbenzene Oxidizer: Jm Mijares MD Barbiturate(s),Ur Negative Normal NEG [facility] Comment on above: Result Comment: (Positive cutoff 200 ng/mL) Performed By: #### U HCG, UMICAO, UAX, CLIFF #### [facility] [address] [place] [address] Ethylbenzene Oxidizer: Jm Mijares MD Benzodiazepine(s) Negative Normal NEG [facility] Comment on above: Result Comment: (Positive cutoff 200 ng/mL) Performed By: #### U HCG, UMICAO, UAX, CLIFF #### [facility] [address] [place] [address] Ethylbenzene Oxidizer: Jm Mijares MD Cannabinoid(s),Ur Positive Abnormal NEG [facility] Comment on above: Result Comment: (Positive cutoff 50 ng/mL) Performed By: #### U HCG, UMICAO, UAX, CLIFF #### [facility] [address] [place] [address] Ethylbenzene Oxidizer: Jm Mijares MD Cocaine Metabolite Negative Normal NEG [facility] Comment on above: Result Comment: (Positive cutoff 300 ng/mL) Performed By: #### U HCG, UMICAO, UAX, CLIFF #### [facility] [address] [place] [address] Ethylbenzene Oxidizer: Jm Mijares MD Fentanyl, Urine Negative Normal NEG [facility] Comment on above: Result Comment: (Positive cutoff 5 ng/ml) Performed By: #### U HCG, UMICAO, UAX, CLIFF #### [facility] [address] [place] [address] Ethylbenzene Oxidizer: Jm Mijares MD Interpretive Info Assay provides medical screening only. The absence of expected drug(s) and/or Normal [facility] Comment on above: Result Comment: meta bolite(s) may indicate diluted or adulterated urine, limitations of testing or timing of collection. Testing for legal purposes should be confirmed by another method. To request confirmation of test result, please call the lab within 7 days of sample submission. Performed By: #### U HCG, UMICAO, UAX, CLIFF #### [facility] [address] [place] [address] Ethylbenzene Oxidizer: Jm Mijares MD Methadone Ql (U) Negative Normal NEG [facility] Comment on above: Result Comment: (Positive cutoff 300 ng/mL) Performed By: #### U HCG, UMICAO, UAX, CLIFF #### [facility] [address] [place] [address]. [place] [address] Ethylbenzene Oxidizer: Jm Mijares MD Opiate(s), Ur Negative Normal NEG [facility] Comment on above: Result Comment: (Positive cutoff 300 ng/mL) Performed By: #### U HCG, UMICAO, UAX, CLIFF #### [facility] [address] [place] [address] Ethylbenzene Oxidizer: Jm Mijares MD Oxycodone, Urine Negative Normal NEG [facility] Comment on above: Result Comment: (Positive cutoff 100 ng/mL) Performed By: #### U HCG, UMICAO, UAX, CLIFF #### [facility] [address] [place] [address]. [place] [address] Ethylbenzene Oxidizer: Jm Mijares MD Phencyclidine, Ur Negative Normal NEG [facility] Comment on above: Result Comment: (Positive cutoff 25 ng/mL) Performed By: #### U HCG, UMICAO, UAX, CLIFF #### [facility] [address] [place] [address]. [place] [address] Ethylbenzene Oxidizer: Jm Mijares MD Ethanol Alcoholon 04-22-2022 Ethanol [Mass/Vol] mg/dL Normal <10 [facility] Comment on above: Performed By: #### C DP, ALCB, BMP #### [facility] [address] [place] [address] Ethylbenzene Oxidizer: Jm Mijares MD Ethanol percent <0.010 Normal <0.010 [facility] Comment on above: Performed By: #### C DP, ALCB, BMP #### [facility] [address] [place] [address] Ethylbenzene Oxidizer: Jm Mijares MD HCG, ,Urineon 04-22 Beta HCG ( test) Ql (U) Negative Normal NEG [facility] Comment on above: Result Comment: [...] #### U HCG, UMICAO, UAX, CLIFF #### [facility] [address] [place] [address] Ethylbenzene Oxidizer: Jm Mijares MD UA w/Reflex Cultureon 2021 Bilirubin, SemiQt,Ur Negative Normal NEG [facility] Comment on above: Performed By: #### U HCG, UMICAO, UAX, CLIFF #### [facility] [address] [place] [address]. [place] [address] Ethylbenzene Oxidizer: Jm Mijares MD Blood, Urine TRACE Abnormal NEG [facility] Comment on above: Performed By: #### U HCG, UMICAO, UAX, CLIFF #### [facility] [address] [place] [address]. [place] [address] Ethylbenzene Oxidizer: Jm Mijares MD Clarity (U) Clear Normal CLEAR [facility] Comment on above: Performed By: #### U HCG, UMICAO, UAX, CLIFF #### [facility] [address] [place] [address]. [place] [address] Ethylbenzene Oxidizer: mJ Mijares MD Color (U) Yellow Normal YEL [facility] Comment on above: Performed By: #### U HCG, UMICAO, UAX, CLIFF #### [facility] [address] [facility] [place] [address] Ethylbenzene Oxidizer: Jm Mijares MD Glucose Ql (U) Negative Normal NEG [facility] Comment on above: Performed By: #### U HCG, UMICAO, UAX, CLIFF #### [facility] [address] [place] [address] Ethylbenzene Oxidizer: Jm Mijares MD Ketones Ql (U) Negative Normal NEG [facility] Comment on above: Performed By: #### U HCG, UMICAO, UAX, CLIFF #### [facility] [address] [place] [address]. [place] [address] Ethylbenzene Oxidizer: Jm Mijares MD Leukocyte esterase Test strip Ql (U) Negative Normal NEG [facility] Comment on above: Performed By: #### U HCG, UMICAO, UAX, CLIFF #### [facility] [address] [place] [address]. [place] [address] Ethylbenzene Oxidizer: Jm Mijares MD Nitrite,Ur Negative Normal NEG [facility] Comment on above: Performed By: #### U HCG, UMICAO, UAX, CLIFF #### [facility] [place] [address] Ethylbenzene Oxidizer: Jm Mijares MD PH,Ur 6.0 Normal 5.0-8.0 [facility] Comment on above: Performed By: #### U HCG, UMICAO, UAX, CLIFF #### [facility] [place] [address] Ethylbenzene Oxidizer: Jm Mijares MD Protein Ql (U) Negative Normal NEG [facility] Comment on above: Performed By: #### U HCG, UMICAO, UAX, CLIFF #### [facility] [address] [place] [address] Ethylbenzene Oxidizer: Jm Mijares MD Spec. [place],Ur 1.020 Normal 1.005-1.030 [facility] Comment on above: Performed By: #### U HCG, UMICAO, UAX, CLIFF #### [facility] [address] [place] [address]. [place] [address] Ethylbenzene Oxidizer: Jm Mijares MD Urobilinogen,Ur Normal Normal NORM [facility] Comment on above: Performed By: #### U HCG, UMICAO, UAX, CLIFF #### [facility] [address] [place] [address]. [place] [address] Ethylbenzene Oxidizer: Jm Mijares MD Urinalysis,Microon 2 Bacteria RARE Abnormal NONE [facility] Comment on above: Performed By: #### U HCG, UMICAO, UAX, CLIFF #### [facility] [address] [place] [address]. [place] [address] Ethylbenzene Oxidizer: Jm Mijares MD Epithelial cells LM Ql (Urine sed) 2 TO 5 Normal 0-5 [facility] Comment on above: Performed By: #### U HCG, UMICAO, UAX, CLIFF #### [facility] [place] [address] Ethylbenzene Oxidizer: Jm Mijares MD Urine RBC's 10 TO 20 Normal 0-2 [facility] Comment on above: Performed By: #### U HCG, UMICAO, UAX, CLIFF #### [facility] [address] [place] [address]. [place] [address] Ethylbenzene Oxidizer: Jm Mijares MD Urine WBC's 0 TO 2 Normal 0-5 [facility] Comment on above: Performed By: #### U HCG, YOSELIN TEJADA, CLIFF #### [facility] [address] [place] [id number] Ethylbenzene Oxidizer: Jm Mijares MD XR ANKLE LT MIN 3 Von 2021 XR ANKLE LT MIN 3 V IMAGES REVIEWED: XR ANKLE LT MIN 3 V COMPARISON: None available. CLINICAL INDICATION: Pain FINDINGS/IMPRESSION: 1. No radiographic evidence of acute osseous abnormality of the left ankle. 2. Moderate lateral ankle soft tissue swelling. Electronically authenticated by: KATI QURESHI Date: 2021-10-02 20:27 Normal [facility] XR HAND LT MIN 3Von 09-06-19 [...] by: ANDREZ NAVARRO Date: 2021-09-05 08:43 Normal [facility] Williams 06-22-2020 L Specimen: [id number] Received: 06/22/20 Status: RAJAN Su Num: [id number] Spec Type: Surgical Subm Dr: Xavier Younger MD Tissues: A Skin-Other than Cyst, tag, debridement or plastic repair (L FOREHEAD) Procedures: HE Stain, Gross/Micro L4 Patient Age/Sex Location Account Attending Physician Jenni Sharma 39/F DANILO [id number] Xavier Younger MD SPEC NUM: [id number] RECD: 06/22/20 STATUS: RAJAN SU NUM: [id number] YOSEF: 06/22/20- SUBM DR: Xavier Younger MD [...] microscopic findings support the above pathologic diagnosis. [id number] Specimen: [id number] Received: 06/22/20 Status: RAJAN Su Num: [id number] Spec Type: Surgical Subm Dr: Xavier Younger MD Tissues: A Skin-Other than Cyst, tag, debridement or plastic repair (L FOREHEAD) Procedures: HE Stain, Gross/Micro L4 Patient: Jenni Sharma [id number] (Continued) Signed (signature on file) Dallas Mckenzie MD 06/23/20 1731 Normal [facility] Encounters Encounter Date Encounter Type Care Provider Facility Start: 06-28-2022 End: 06-28-[address] LEXY POTTER Facility:[facility] Start: 04-22-2022 End: 04-22-2022 Emergency department patient visit [facility] Start: 10-02-2021 End: 10-02-2021 ambulatory [facility] ALEX Facility:[facility] Start: 09-05-2021 End: 09-05-[address] DOCTOR PRADHAN Facility:[facility] Start: 06-22-2020 End: 06-22-2020 Departed Referred Xavier Younger [facility] [place] Payers Date Payer Category Payer Unknown [id number] [id number] 1980 Unknown [id number] [id number] [id number] 1980 Unknown [id number] 2.16.84 [id number] 1980 Unknown [id number] [id number] [id number] 1959 Unknown [id number] Self-pay Self Pay [id number] Social History Date Type Detail Facility Tobacco smoking stat [facility] Unknown if ever smoked [facility] Start: 1980 Sex Assigned At Female F [facility] Goals Date Patient Goal Desired [...] section and content) DATE CREATED AUTHOR 06/28/2020 [facility] DATE CREATED AUTHOR AUTHOR'S ORGANIZ ATION 04/22/2022 [facility] DATE CREATED AUTHOR AUTHOR'S ORGANIZ ATION [facility]22 [facility]ORDS PERTAINING TO PATIENTS WHO [...] BE BASED ON THE PRIMARY CLINICAL RECORDS. [employer] provides no warranty or guarantee of the accuracy or completeness of information in this document.
[2024-05-17 04:07] LABS: HCV Ab Non Reactive (Non Reactive); HIV Ab/p24 Ag Screen Non Reactive (Non Reactive)
[2024-05-17 09:07] LABS: Rapid Plasma Reagin, Quant Non Reactive titer (NonRea<1:1)
[2024-05-19 10:09] LABS: HSV-1 DNA Negative (Negative); HSV-2 DNA Negative (Negative)
== END 2024-05-16 10:35 | disposition home or self-care (01) ==
LOC: LAB 10:41
DX: Z11.3 Encounter for screening for infections with a predominantly sexual mode of transmission (principal); Z12.4 Encounter for screening for malignant neoplasm of cervix
CPT/HCPCS: 36415; 86592; 86803; 87389